=== PATIENT | female | born 1950 | race Caucasian/White ===

== ENCOUNTER 2023-05-20 08:07 | Observation (INO) ==
--- NOTE | 2023-04-29 12:18 | PAT Medication Instructions ---
Medication Instructions Date of Service April 29, 2023 Home Medications cholecalciferol (vitamin D3) 50 mcg (2,000 unit) tablet (Vitamin D3) 50 mcg PO QAM cyanocobalamin (vitamin B-12) 500 mcg tablet (Vitamin B-12) 500 mcg PO QAM fenofibrate nanocrystallized 145 mg tablet 145 mg PO QAM geriatric multivitamin-min 1 tab PO QAM glimepiride 2 mg tablet 2 mg PO QAM insulin aspar prt-insulin aspart 100 unit/mL (70-30) subcutaneous soln (Novolog Mix 70-30 U-100 Insuln) 32 - 48 unit subcut UD potassium chloride 20 mEq tablet,extended release 20 meq PO QAM STOP taking 48 hours before surgery fenofibrate nanocrystallized 145 mg tablet 145 mg PO QAM DO NOT take the morning of surgery cholecalciferol (vitamin D3) 50 mcg (2,000 unit) tablet (Vitamin D3) 50 mcg PO QAM cyanocobalamin (vitamin B-12) 500 mcg tablet (Vitamin B-12) 500 mcg PO QAM geriatric multivitamin-min 1 tab PO QAM glimepiride 2 mg tablet 2 mg PO QAM insulin aspar prt-insulin aspart 100 unit/mL (70-30) subcutaneous soln (Novolog Mix 70-30 U-100 Insuln) 32 - 48 unit subcut UD (Documented addended at PAT appt- handwritten instructions to take usual Novolog 70/30 dose night prior and to check glucose DOS- if greater than 150- take 1/2 of Novolog 70/30 dos (24 units), if glucose less than 150- do NOT take Novolog 70/30 DOS) potassium chloride 20 mEq tablet,extended release 20 meq PO QAM Other Notes NOTHING TO EAT OR DRINK AFTER MIDNIGHT. If you have any questions please call us at [phone] or [phone] or [phone] or [phone]
--- NOTE | 2023-05-04 10:26 | Anesthesiology Consultation ---
Date of Service May 04, 2023 Assessment & Plan (1) Encounter for pre-operative examination: Chart Review Chart Review: Acceptable Risk for Surgery and Patient seen in Pre Admission Testing - Check BSG AM DOS Pt currently scheduled as 23 hours observation. If surgeon decides to change patient to Same Day Joint, patient would be acceptable risk for MAYE, pending patient is motivated, has good support and surgeon's office completes Same Day [facility] Program preop requirements. Per PAT appt on 05/04/23, no recent Covid exposures, Covid related symptoms, or recent Covid positive tests. Will leave to surgeon's discretion if preop Covid testing needed PCP Clearance Request 04/30/23= "Yes" patient is medically cleared for surgery Teaching & Discussion Pre-Anesthesia Teaching/Discussion Notes: Instructed NPO after midnight before surgery,except medications with 15 cc of water. Medication instructions provided according to the PAT guidelines. History Surgery Operation Date: 05/20/23 10:25 Proposed Procedures p Right Total Hip Arthroplasty - Rajan Gee MD Height/Weight Height: 5 ft 5 in Weight: 75.1 kg Allergies Allergy/AdvReac Type Severity Reaction Status Date / Time ciprofloxacin [From Cipro] AdvReac headache Verified 04/28/23 16:07 Medications Home Medications Medication Instructions Recorded Confirmed Last Taken cholecalciferol (vitamin D3) 50 50 mcg PO QAM 04/28/23 04/28/23 Unknown mcg (2,000 unit) tablet (Vitamin D3) cyanocobalamin (vitamin B-12) 500 500 mcg PO QAM 04/28/23 04/28/23 Unknown mcg tablet (Vitamin B-12) fenofibrate nanocrystallized 145 145 mg PO QAM 04/28/23 04/28/23 Unknown mg tablet geriatric multivitamin-min 1 tab PO QAM 04/28/23 04/28/23 Unknown glimepiride 2 mg tablet 2 mg PO QAM 04/28/23 04/28/23 Unknown insulin aspar prt-insulin aspart 32 - 48 unit subcut UD 04/28/23 04/28/23 Unknown 100 unit/mL (70-30) subcutaneous soln (Novolog Mix 70-30 U-100 Insuln) potassium chloride 20 mEq 20 meq PO QAM 04/28/23 04/28/23 Unknown tablet,extended release Past Medical History Medical History (Updated 05/04/23 @ 14:53 by Allie Jernigan PA-C) DM type 2 (diabetes mellitus, type 2) Glucose controlled - recent A1C 7.3 on 04/16/23- recently started on Glimepiride; has been taking Novolog 70/30 History of migraine In Hyperlipidemia Osteoarthritis PONV (postoperative nausea and vomiting) w/ colonoscopies x 2 occurrences Spinal stenosis Exercise / Class Metabolic Activity II 4-5 Yardwork/Stairs/Walk up hill (one flight of stairs- no chest pain or SOB ) Past Surgical History Surgical History History of appendectomy History of bladder surgery History of breast biopsy History of carpal tunnel surgery History of partial hysterectomy History of tonsillectomy Hx of colonoscopy Past Anesthesia History No Hx of Anesthesia Complications (with exception of PONV ) and No Family Hx of Anesthesia Complications History of PONV History of PONV (with colonoscopies x 2 ) and Hx of Motion Sickness Social History Smoking Status: Never smoker Do You Dip or Chew Tobacco: No Hx Alcohol Use: No Hx Substance Use: No substance use type: does not use Review of Systems Patient denies chest pain, shortness of breath, dyspnea on exertion, reflux, cough, wheezing, palpitations. No hx of seizures, stroke, DC, apnea/snoring. No hx of blood clots or blood transfusions Physical Exam Vital Signs VITALS BP 138/78 P 63 TEMP 98.3 SP02 97% RESP 16 Constitutional no acute distress ENMT Mouth: + small oral opening; no TMJ clicking Thyromental Distance: < 3.5 Finger Breadths (3.0) Mallampati Class: III Possible crown to molar Neck + limited neck extension (mild ) Respiratory normal respiratory effort; no respiratory distress Auscultation: lungs clear to auscultation bilaterally; no wheezes Cardiovascular Rate/Rhythm: regular rate and regular rhythm Heart Sounds: no murmur Vessels: no carotid bruit Musculoskeletal Spine: + pain with cervical ROM (mild stiffness ) Extremities: extremities normal to inspection Psychiatric Orientation: alert Lab Results Anesthesia Preop Results Results Anesthesia Widget: PT 11.0 Seconds (9.0-12.0) 05/04/23 PTT 27.1 Seconds (21.0-31.0) 05/04/23 INR 1.0 (0.9-1.1) 05/04/23 Urine Color Yellow 05/04/23 Urine Appearance Cloudy (Clear) A 05/04/23 Urine pH 5.5 (4.5-7.5) 05/04/23 Urine Specific [place] 1.017 (1.000-1.030) 05/04/23 Urine Protein Negative (Negative) 05/04/23 Urine Glucose (UA) Trace (Negative) H 05/04/23 Urine Ketones Negative (Negative) 05/04/23 Urine Blood Trace (Negative) H 05/04/23 Urine Nitrite Positive (Negative) A 05/04/23 Urine Bilirubin Negative (Negative) 05/04/23 Urine Urobilinogen Negative (Negative) 05/04/23 Urine Leukocyte Esterase 1+ (Negative) H 05/04/23 Urine WBC (Auto) >30 /hpf (0-5) H 05/04/23 Urine RBC (Auto) 0-4 /hpf (0-4) 05/04/23 Urine Hyaline Casts (Auto) 0 /lpf (0-5) 05/04/23 Urine Epithelial Cells (Auto) 10-20 /lpf (0-5) H 05/04/23 Urine Bacteria (Auto) 4+ (Negative) H 05/04/23 Blood Type A Positive 05/04/23 Antibody Screen NEGATIVE 05/04/23 Testing Laboratory Results Surgeon's office informed of abnormal UA- culture pending- will leave to surgeon's discretion how to proceed 04/16/23= WBC: 6.45 H/H: 13.2/41.9 PLATELETS: 294 SODIUM: 140 POTASSIUM: 4.0 CHLORIDE: 107 CO2: 27.2 BUN: 13.9 CREATININE: 0.75 GLUCOSE: 115 HGB A1C: 7.3 Electrocardiogram Date: 05/04/23 Findings: + NSR @ (71bpm ) Normal EKG per cardio Chest X-Ray Date: 05/04/23 Findings: + NAD
[~2023-05-20 08:07] MED LIST: ACETAMINOPHEN 500 MG TAB PO SCH; BUPIVACAINE 0.5 % 5 MG/1 ML PF 10ML VIAL ONE; CeleBREX 200 MG CAP PO SCH; FAMOTIDINE 20 MG TAB PO SCH; LR 500ML BOLUS, THEN 15ML/HR IV SCH; LR 60ML/HR IV SCH; MIDAZOLAM HCL 1 MG/ML 2ML VIAL ONE; PROPOFOL IV EMULSION 10 MG/ML 20 ML VIAL IV ONE; Scopolamine 1 MG TDSY TD SCH; TRANEXAMIC ACID 1,000 MG **IV Intra-op IV SCH; TRANEXAMIC ACID 1,000 MG **IV Pre-op IV SCH; ceFAZolin 2000MG 2,000 MG/15 ML SYR IV SCH; traMADol HCL 50 MG TABLET PO SCH
[2023-05-20] MEDS ORDERED: MIDAZOLAM HCL 1 MG/ML 2ML VIAL ONE (08:36)
--- NOTE | 2023-05-20 10:02 | History & Physical Bridge Note ---
Date of Service May 20, 2023 History & Physical Bridge Note I have examined the patient, reviewed the History & Physical and in the interval since the performance of the History & Physical I have noted the following changes of clinical significance: no changes noted
[2023-05-20] MEDS ORDERED: ORTHO JOINT ANESTHETIC ONE (10:06)
[2023-05-20] MEDS ORDERED: ATROPINE SULFATE 0.1 MG/ML 10ML SYR IV PRN (10:31)
[2023-05-20] MEDS ORDERED: ePHEDrine sulfate 50 MG/ML AMP IV PRN (10:31)
[2023-05-20] MEDS ORDERED: ONDANSETRON INJ 2 MG/ML 2 ML VIAL IV PRN ×2 (10:31→12:03)
[2023-05-20] MEDS ORDERED: fentaNYL citrate PF 100 MCG/2 ML VIAL IV PRN (10:31)
[2023-05-20] MEDS ORDERED: ePHEDrine sulfate 50 MG/ML AMP ONE (11:06)
[2023-05-20] MEDS: ROPIVACAINE 0.5% HCL/PF 150 MG, BUPIVACAINE 0.75% MPF 20 ML, EPINEPHrine 0.15 MG, Ketor... INFIL SCH (11:31)
--- NOTE | 2023-05-20 12:00 | Operative Report ---
Post Operative Report Pre & Post Diagnosis Operation Date: 05/20/23 10:15 Preoperative diagnosis: Right hip osteoarthritis. Postoperative diagnosis: Right hip osteoarthritis. I identified the patient and participated in the time-out.: Yes Procedure Operation Date: 05/20/23 10:15 Right total hip arthroplasty Surgeon Rajan Gee MD Senior Qa Engineer ERI Levi PA-C. Sky Landon MD Estimated Blood Loss 100 Findings Consistent with Post-Op Diagnosis Specimens right femoral head Anesthesia Type Spinal MAC Complications none Disposition Disposition: Recovery Room Indications 73-year-old female with right hip osteoarthritis refractory to conservative management. X-rays demonstrate [id number] disease. I had a long discussion with her about the risks and benefits of surgery, alternatives to surgery, and expected outcomes. After reviewing all these she elected to proceed with surgery. All questions were answered. Informed consent was signed. Description of Procedure Patient was identified in the preoperative holding area where the surgical site, right hip, was marked. A spinal anesthetic was placed, then the patient was brought back to the main operating room, placed in the operating table and moved into the lateral decubitus position. Axillary roll was placed. All bony prominences were padded. Perioperative antibiotics and tranexamic acid 1 gram IV were administered. Operative extremity was prepped and draped in the normal sterile fashion. Prior to incision a multidisciplinary timeout was called. All in the room were in agreement. We began by making an incision for a posterior approach to the hip. We dissected down through subcutaneous tissues to the level of the fascia. The fascia was incised in line with the incision. Charnley bow was placed. Fatty tissue was reflected posteriorly off the back of the greater trochanter to expose the piriformis and short external rotators of the hip. The piriformis and short external rotators were dissected off the posterior aspect of the hip. A box cut was made in the capsule. Inferior hip capsule was released off the femur. The femoral head was dislocated. The femoral neck cut was made at our preoperative template. The acetabulum was then exposed. The labrum was sharply excised. Contents of the cotyloid fossa were removed with electrocautery. We then began reaming at a size 8 mm less than our preoperative template. We reamed up by [address] the way up to a size 50 mm cup. This gave us good bleeding cancellus bone circumferentially. The acetabulum was then irrigated out and dried. The real Sweet Gription cup was then impacted down into position with 45 degrees of lateral opening and 25 degrees of anteversion. A single cancellous bone screw was placed up into the ilium. Excellent fixation was obtained. A trial liner for a 32 mm femoral head was then placed. Next we turned our attention to the femur. The lateral neck was removed with a box osteotome. Intramedullary guide was used to establish the femoral canal. We then broached all the way up to a size 5. We began trialing with a standard offset neck and a +5 head. Hip was reduced. Leg lengths were symmetric. The hip was stable in extension and external rotation, and stable in the sleeper position. At 90 degrees of hip flexion the hip could be internally rotated 50 degrees before levering out of the cup. I was very happy with the stability exam. Therefore the hip was dislocated and the femoral trial was removed. The acetabulum was re-exposed, and the trial liner was removed. An Altrx polyethylene liner for a 32 mm femoral head was then impacted into the shell. The locking mechanism was checked to ensure that it had engaged which it had. The femur was re-exposed. The femoral canal was irrigated and dried. The real size 5 standard offset stem was opened up. This was impacted down into position. It sat at the same level as the femoral trial. Therefore the 32 mm ceramic femoral head with +5 mm offset was opened up and gently impacted down onto the trunnion. The hip was atraumatically reduced. Another 1 gram of IV tranexamic acid was started prior to closure. The wound was irrigated out with sterile Betadine solution. The periarticular injection cocktail was then placed. The short external rotators, piriformis, and posterior capsule were repaired through drill holes in the greater trochanter using #2 Vicryl. The fascia was run with a looped #1 PDS. The subcutaneous layer was closed with #1 PDS. The dermal layer was closed with 2-0 Vicryl. Zip line was used for the skin followed by a Silverlon dressing. A compressive dressing was then placed. The patient was then rolled supine. Leg lengths were rechecked and were symmetric. An abduction pillow was placed. Sedation was lifted and the patient was transferred to the recovery room in stable condition. Summary of implants: Depuy Sweet Gription Acetabular Shell Sector Cup, 50 mm outer diameter Sweet Cancellous bone screw, 6.5 x 40 mm [place] hole eliminator Sweet Altrx Polyethylene Acetabular Liner, Neutral, with a 32 mm inner diameter DePuy Actis femoral stem with Por[place]oat, 12/14 taper, size 5 standard offset 32 mm ceramic femoral head with +5 offset Postoperative course: Patient will be admitted to the hospital from the recovery room. Patient will be weightbearing as tolerated with posterior hip precautions. Aspirin for DVT prophylaxis I attest to the content of the Intraoperative Record and any orders documented therein. Any exceptions are noted below.
[2023-05-20] MEDS ORDERED: diphenhydrAMINE 50 MG/ML VIAL IV PRN (12:03)
[2023-05-20] MEDS ORDERED: NALOXONE HCL 0.4 MG/1 ML VIAL/CARP IV PRN (12:03)
[2023-05-20] MEDS ORDERED: MAGNESIUM HYDROXIDE SUSP 30 ML UDC PO PRN (12:03)
[2023-05-20] MEDS ORDERED: METOCLOPRAMIDE HCL INJ 5 MG/ML 2 ML VIAL IV PRN (12:03)
[2023-05-20] MEDS ORDERED: ALUMINUM/MAGNESIUM SUSP 30 ML UDC PO PRN (12:03)
[2023-05-20] MEDS ORDERED: bisacodyL 10 MG SUPP PR PRN (12:03)
[2023-05-20] MEDS ORDERED: PHARMACY GLYCEMIC MGMT CONSULT PRN (12:03)
[2023-05-20] MEDS ORDERED: HYDROmorphone INJ 0.5 MG/0.5 ML SYR IV PRN (12:03)
--- NOTE | 2023-05-20 12:03 | Operative Report ---
Post Operative Report Pre & Post Diagnosis Operation Date: 05/20/23 10:15 Pre-Op Diagnosis: Right Hip Osteoarthritis Post-Op Diagnosis: Right Hip Osteoarthritis I identified the patient and participated in the time-out.: Yes Procedure Operation Date: 05/20/23 10:15 Actual Procedures p Right Total Hip Arthroplasty(Right) - Rajan Gee MD Surgeon Dr. Rajan Gee Apn EIR Levi PA-C. Sky Landon MD Estimated Blood Loss 100 Findings Consistent with Post-Op Diagnosis Specimens femoral head Description of Procedure I was present during the entire procedure assisting with positioning, prepping, draping, wound retraction, wound closure, dressing and abduction pillow placement. Fellow also present. I served as an extra set of hands during the case. Please see Dr. Gee procedure note for specifics of the case. I attest to the content of the Intraoperative Record and any orders documented therein. Any exceptions are noted below.
--- NOTE | 2023-05-20 12:06 | Operative Report ---
Post Operative Report Pre & Post Diagnosis Operation Date: 05/20/23 10:15 Pre-Op Diagnosis: Right Hip Osteoarthritis Post-Op Diagnosis: Right Hip Osteoarthritis I identified the patient and participated in the time-out.: Yes Procedure Operation Date: 05/20/23 10:15 Actual Procedures p Right Total Hip Arthroplasty(Right) - Rajan Gee MD Surgeon Rajan Gee MD Asphalt Layer ERI Levi PA-C. Sky Landon MD Estimated Blood Loss 100 Findings Consistent with Post-Op Diagnosis See detailed operative note Specimens None Description of Procedure See detailed operative note. I attest to the content of the Intraoperative Record and any orders documented therein. Any exceptions are noted below.
[2023-05-20] MEDS ORDERED: INSULIN ASPART SQ SCH (12:15)
[2023-05-20] MEDS ORDERED: INSULIN ASPART PROTAMINE SQ SCH (12:15)
--- NOTE | 2023-05-20 12:41 | XRay Report ---
XR pelvis 1-2V routine CLINICAL HISTORY: In PACU - Post Surgical TECHNIQUE: A single frontal view of the pelvis was obtained. Comparison: Comparison is made to pelvis radiograph 05/04/2023 FINDINGS: Patient is status post total hip arthroplasty with expected postsurgical changes including soft tissu e swelling, and subcutaneous emphysema. No periarticular lucency or hardware fracture is seen. Degene rative changes are seen in the left hip joint. IMPRESSION: Expected postoperative appearance status post placement of total hip arthroplasty. ACT 112: Negative or not required by law. Electronically signed by: Osmel Abraham M.D. 05/20/2023 12:40 PM
[2023-05-20] MEDS: SODIUM CHLORIDE 0.9% 1,000 ML IV SCH ×2 (13:40→22:47)
--- NOTE | 2023-05-20 13:50 | Anesthesiology Progress Note ---
Date of Service May 20, 2023 Anesthesia Post Procedure Vital Signs Vital Signs: Temp Pulse Pulse Resp BP Pulse Ox O2 Del Method 05/20/23 13:30 65 16 125/55 L 99 Room Air 05/20/23 13:20 36.3 C L 74 16 123/54 L 96 Room Air 05/20/23 13:10 60 14 125/56 L 98 Room Air 05/20/23 13:00 69 16 125/71 100 Room Air 05/20/23 12:50 65 14 127/52 L 99 Room Air 05/20/23 12:40 67 14 131/53 L 100 Room Air 05/20/23 12:30 73 14 133/55 L 98 Room Air 05/20/23 12:20 73 14 130/57 L 100 Room Air 05/20/23 12:10 68 16 137/60 99 Room Air 05/20/23 12:02 37.0 C 75 16 139/55 L 99 Room Air 05/20/23 09:06 36.7 C 73 18 144/63 H 99 Room Air Pain Intensity Right Hip: Pain Intensity: 1 Transfer of Care Handoff Completed per policy Notes Mental Status: alert / awake / arousable and participated in evaluation Nausea / Vomiting: adequately controlled Pain: adequately controlled Airway Patency, RR, SpO2: stable & adequate BP & HR: stable & adequate Hydration State: stable & adequate Neuraxial Anesthesia: was administered and sensory block is resolving Anesthetic Complications: no major complications apparent and Pt Satisfied with anesthetic care
--- NOTE | 2023-05-20 14:20 | Pharmacy Report ---
Pharmacy Glycemic Short Note 2 - Date of Service May 20, 2023 - Glycemic Short BSG Results (Last 24 hours): 05/20/23 05/20/23 08:31 12:04 POC Glucose 113 H 116 H OUTPATIENT ANTIDIABETIC REGIMEN: * Novolin mix 70/30- 48 units with breakfast, 32 units with dinner * Glimeperide 2mg QAM ASSESSMENT: * Kathleen is a 73 YOF admitted post total hip arthroplasty. Pharmacy has been consulted for glycemic management while inpatient. * Fasting BSG this AM is within goal range, will start NPH (Novolin Mix 70/30 is non-formulary) with dinner based off of total daily insulin requirements outpatient. Hold basal insulin if not eating dinner. * Will start conservatively with Novolog parameters at a weight based stress of 2 PLAN FOR INPATIENT GLYCEMIC CONTROL: * Hold outpatient oral diabetes medications * Basal insulin * Insulin NPH 15 units SQ with dinner (Reassess basal insulin in AM) * Bolus insulin * NovoLog per scale ACHS or Q6hrs while NPO * Goal Range: Low 110 mg/dL - High 140 mg/dL * Correction Factor: 30 mg/dL/unit * Nutritional / Prandial insulin per carb ratio of 1 unit per 11 grams CHO consumed
[2023-05-20] MEDS: ACETAMINOPHEN 500 MG TAB PO SCH ×2 (14:38→21:12)
[2023-05-20] MEDS: KETOROLAC TROMETHAMINE 15 MG/ML VIAL IV SCH ×2 (14:38→21:12)
[2023-05-20] MEDS: INSULIN ASPART PER UNIT CHARGE SC SCH ×3 (14:38→21:54)
[2023-05-20] MEDS ORDERED: NovoLIN-N (NPH) PER UNIT CHARGE SQ SCH (17:00)
[2023-05-20] MEDS: Scopolamine CHECK PATCH PLACEMENT SCH (17:11)
[2023-05-20] MEDS ORDERED: TRANEXAMIC ACID / 0.7% NACL 1,000 MG/100 ML BAG IV SCH (18:15)
[2023-05-20] MEDS: ceFAZolin 2000MG 2,000 MG/15 ML SYR IV SCH (18:20)
[2023-05-20] MEDS ORDERED: SENNA 8.6 MG TAB PO SCH (21:00)
[2023-05-20] MEDS ORDERED: CeleBREX 200 MG CAP PO SCH (21:00)
[2023-05-20] MEDS: DOCUSATE SODIUM 100 MG CAP PO SCH (21:01)
[2023-05-20] MEDS: oxyCODONE HCL IR 5 MG TAB (IMMEDIATE RELEASE) PO PRN (23:31)
[2023-05-21] MEDS: Scopolamine CHECK PATCH PLACEMENT SCH ×2 (00:19→08:29)
[2023-05-21] MEDS: ceFAZolin 2000MG 2,000 MG/15 ML SYR IV SCH (02:23)
[2023-05-21] MEDS: KETOROLAC TROMETHAMINE 15 MG/ML VIAL IV SCH ×2 (02:23→08:26)
[2023-05-21] MEDS: ACETAMINOPHEN 500 MG TAB PO SCH (05:55)
[2023-05-21] MEDS: ROPIVACAINE 0.5% HCL/PF 150 MG, BUPIVACAINE 0.75% MPF 20 ML, EPINEPHrine 0.15 MG, Ketor... INFIL SCH (06:55)
[2023-05-21] MEDS ORDERED: NovoLIN-N (NPH) PER UNIT CHARGE SQ SCH (08:00)
[2023-05-21 08:06] LABS: Basophils # (auto) 0.01 K/uL (0.00-0.20); Basophils % (auto) 0.1 %; Eosinophils % (auto) 1.4 %; Hematocrit (blood only) 31.3 % (37.0-47.0); Hemoglobin 10.3 g/dl (12.0-16.0); Immature Granulocytes # (auto) 0.08 K/uL (0.01-0.20); Immature Granulocytes % (auto) 1.1 %; Lymphocytes # (auto) 1.47 K/uL (1.20-3.40); Lymphocytes % (auto) 21.1 %; Mean Corpuscular Hemoglobin 28.9 pg (25.0-34.0); Mean Corpuscular Hgb Conc 32.9 g/dL (32.0-36.0); Mean Corpuscular Volume 87.9 fL (80.0-100.0); Mean Platelet Volume 9.3 fL (9.4-12.4); Monocytes # (auto) 0.72 K/uL (0.11-0.59); Monocytes % (auto) 10.3 %; Neutrophils # (auto) 4.58 K/uL (1.40-6.50); Platelet Count 185 K/uL (130-400); RDW Coefficient of Variation 12.9 % (11.5-14.5); Red Blood Count 3.56 M/uL (4.20-5.40); White Blood Count 6.96 K/ul (4.8-10.8)
[2023-05-21 08:23] LABS: BUN Creatinine Ratio 21.7 (10-20); Calcium 8.7 mg/dl (8.6-10.3); Creatinine Clr Calc Pharmacy 73.9 ml/min; Est GFR (African American) 100.8 ml/min; Potassium 4.2 mmol/L (3.5-5.1)
[2023-05-21] MEDS: DOCUSATE SODIUM 100 MG CAP PO SCH (08:26)
[2023-05-21] MEDS: INSULIN ASPART PER UNIT CHARGE SC SCH ×2 (08:37→12:29)
[2023-05-21] MEDS ORDERED: MULTIVITAMIN TAB PO SCH (09:00)
[2023-05-21] MEDS ORDERED: FENOFIBRATE NANOCRYSTALLIZED 145 MG TABLET PO SCH (09:00)
[2023-05-21] MEDS ORDERED: POTASSIUM CHLORIDE CRTAB 20 MEQ TABCR PO SCH (09:00)
[2023-05-21] MEDS ORDERED: CYANOCOBALAMIN (B-12) 500 MCG TABLET PO SCH (09:00)
[2023-05-21] MEDS ORDERED: GLIMEPIRIDE 2 MG TAB PO SCH (09:00)
[2023-05-21] MEDS ORDERED: [UNRECOGNIZED DRUG - OTHER] PO SCH (09:00)
[2023-05-21] MEDS ORDERED: ASPIRIN 81 MG ECTAB PO SCH (09:00)
[2023-05-21] MEDS ORDERED: CHOLECALCIFEROL 1,000 UNITS 25 MCG TAB PO SCH (09:00)
[2023-05-21] MEDS ORDERED: CeleBREX 200 MG CAP PO SCH ×2 (09:00→21:00)
--- NOTE | 2023-05-21 12:02 | Orthopedic Progress Note ---
Date of Service May 21, 2023 Assessment & Plan (1) History of total right hip arthroplasty: Plan: The patient was educated regarding today's findings. Conservative care measures were discussed. Her dressing has already been changed to a Silverlon dressing. She will keep it in place until seen in the office. She may shower, but should keep her dry. Continue ambulation using her walker. Weight-bear as tolerated. Sleep with her wedge pillow between her legs. Continue her total hip precautions. Prescriptions for oxycodone 5 mg, Celebrex, aspirin, and Tylenol were sent to her pharmacy. She will take aspirin 81 mg twice daily for DVT prophylaxis. Written discharge instructions were provided. Follow-up in the office in 2 weeks as scheduled. Call with any other concerns. Admission and Anticipated Discharge Date Admission Date: May 20, 2023 Subjective This 73-year-old female seen today in her room. She has finished her physical and Occupational Therapy. She states she is feeling pretty well. She is ready to go home. She denies any chest pain, shortness of breath, nausea, vomiting, or abdominal pain. He did have to use 1 oxycodone last evening. Other than that she has been using Tylenol. No other complaints. Physical Exam Physical Exam: General: Well-developed, well-nourished, elderly female, in no acute distress. Sitting in a chair. Alert and oriented. Conversive. Skin: Warm and dry with good turgor. No rashes. No ecchymosis or edema. She has a Silverlon dressing in place on her right hip. There is no active bleeding. Musculoskeletal: The patient has intact motor function of her right leg. She is able to rise from a chair on her own. She is able to stand with her walker and take numerous steps. She has supple motion of her hip. Intact motor function of her knee and ankle. Neurologic: Gross sensation is intact across the right leg by soft touch. Results & Data Vital Signs (Past 12 Hours) Vital Signs Temp Pulse Resp BP Pulse Ox O2 Del Method 05/21/23 07:48 36.5 C 61 16 131/70 100 Room Air 05/21/23 04:00 36.5 C 63 16 114/70 99 Room Air Laboratory Results CBC obtained today shows a white count of 6.96. H&H of 10.3 and 31.3. Platelet count of moderate 85,000. Sodium 139, potassium 4.2, chloride 111, CO2 24, BUN of 15, creatinine 0.69. Glucose 140. Calcium 8.7.
[2023-05-21] MEDS: oxyCODONE HCL IR 5 MG TAB (IMMEDIATE RELEASE) PO PRN (12:29)
[2023-05-22] MEDS ORDERED: NovoLIN-N (NPH) PER UNIT CHARGE SQ SCH (08:00)
--- NOTE | 2023-05-25 08:27 | Discharge Summary ---
Date of Service May 25, 2023 Admission HPI Per Admitting Provider Kathleen is a 73-year-old female here today for preoperative history and physical examination for the above-noted procedure. She denies any major changes with her right hip. She says that it is still causing her severe pain. She was work with Dr. Tavera over the last few months receiving steroid injections into the back and saw his physician retirement assistant who ordered hip x-ray which showed some severe right and moderate left hip arthritis with a small subchondral fracture and slight flattening of the left femoral head. history of having a right LESI L5-S1 on 01/19/2023 he was going to acute care physical therapist about vishal bond 3-week and was previously doing massage therapy on a weekly basis. She notices hip pain most of the day notices hip pain on the lateral aspect as well as in the groin area as well does not take any pain meds at this time. Does have numbness and tingling down the bilateral extremities at times even at night. Right gives out she feels like [1] She reports high cholesterol that is well controlled with a statin. She denies any history of heart attack, stroke or blood clots. She does have diabetes and is on insulin treatment for that. She had a recent A1c done on 04/16/2023 that was 7.3. She regularly checks her sugars and they have been in the 120s. This morning it was 113. Admission Exam Per Admitting Provider Physical Exam Vitals & Measurements T: 36.2 C HR: 75 (Monitored) RR: 18 BP: 130/62 SpO2: 99% HT: 167 cm WT: 75 kg WT: 75.000 kg (Dosing) BMI: 26.89 General: Pt is well nourished, seated on the exam table AA&O, in NAD, calm and cooperative during exam HENT: Nontraumatic, no gross deformity, hearing and vision grossly in-tact, PERRL Heart: +S1, +S2, RRR, no murmurs appreciated Lungs: CTABL, no wheezing appreciated Focusing on right lower extremity: No skin abnormalities. Patient is walking with a rollator Hip ROM: IR and ER ROM wnl Flexion 90 B/L Internal Rotation -5 on right -5 on left External Rotation 30 B/L Strength: 5/5 with plantarflexion/dorsiflexion, foot inversion/eversion, knee flexion/extension, and hip flexion/extension and hip abduction/adduction Sensation: Intact over L2, L3, L4, L5, and S1 dermatomes Special test: negative seated and supine straight leg raise, negative MATEUSZ [2] Principal Diagnosis Right Hip Osteoarthritis Discharge Exam General: Well-developed, well-nourished, elderly female, in no acute distress. Sitting in a chair. Alert and oriented. Conversive. Skin: Warm and dry with good turgor. No rashes. No ecchymosis or edema. She has a Silverlon dressing in place on her right hip. There is no active bleedin g. Musculoskeletal: The patient has intact motor function of her right leg. She is able to rise from a chair on her own. She is able to stand with her walker and take numerous steps. She has supple motion of her hip. Intact motor function of her knee and ankle. Neurologic: Gross sensation is intact across the right leg by soft touch. Discharge Data Allergies Allergy/AdvReac Type Severity Reaction Status Date / Time ciprofloxacin [From Cipro] AdvReac headache Verified 05/20/23 09:00 Procedures Performed Operation Date: 05/20/23 10:15 Actual Procedures p Right Total Hip Arthroplasty(Right) - Rajan Gee MD Hospital Course (1) History of total right hip arthroplasty: Patient had an uneventful overnight stay following Right total hip arthroplasty. She is pleased with the results of her surgery. Plan is to discharge home today with in-home PT for the first 2 weeks following surgery. The patient was educated regarding today's findings. Conservative care measures were discussed. Her dressing has already been changed to a Silverlon dressing. She will keep it in place until seen in the office. She may shower, but should keep her dry. Continue ambulation using her walker. Weight-bear as tolerated. Sleep with her wedge pillow between her legs. Continue her total hip precautions. Prescriptions for oxycodone 5 mg, Celebrex, aspirin, and Tylenol were sent to her pharmacy. She will take aspirin 81 mg twice daily for DVT prophylaxis. Written discharge instructions were provided. Follow-up in the office in 2 weeks as scheduled. Call with any other concerns. Total Time Total Time Spent Total Time Spent (In Minutes): 20 mins Discharge Plan Discharge Items Patient Disposition: Home - Home Health Services Reason For Visit: Pain in Right Hip Discharge Diagnosis: Right hip osteoarthritis Condition on Discharge: Good Activity: As commented below Lifting: Wait until after follow-up appointment Bathing: Keep incision dry Bathing Comment: may shower tomorrow Sexual Activity: Wait until after follow-up appointment Exercise/Sports: Wait until after follow-up appointment Driving/Machine Use: No driving until cleared by tire specialist Weightbearing: Right weightbearing Weightbearing Comment: as tolerated with walker assistance Non-emergency contact: Surgeon Call non-emergency contact if: you have any medication questions, your pain is not controlled, your temperature is above 101.5, your wound has increased drainage and your wound pain has increased Follow-up/Referrals: Robert Levi PA-C [Physician Feller Operator] - Lux Beckham MD [Primary Care Provider] - Diet: Carb Count or DM1 Addtl Attending Provider Instructions: Post-operative Instructions Dear Patient and Family/Friends, Before you are discharged from the hospital, it is important to know what to expect when you get home after surgery. To that end, we have created this sheet of discharge instructions which covers many commonly asked questions. Make sure you go through this sheet in its entirety with your nurse before you are discharged. Please note that we will go over the specifics of your surgery and recovery when you return for your first post-operative visit. Sincerely, Dr. Gee Medications 1. Oxycodone 5 mg tablet: Take 1-2 tabs every 4-6 hours as needed for postoperative pain. A prescription for this medication will be sent to your pharmacy. 2. Celebrex 200 mg tablet: Take 1 tab twice daily for 30 days postoperatively for pain and inflammation relief. This will be sent to your pharmacy with 1 refill. 3. Aspirin 81 mg tablet: Take 1 tab twice daily for 30 days postoperatively for blood clot prevention. Please purchase this medication. 4. Extra strength Tylenol 500 mg tablet: Take 2 tabs every 6-8 hours as needed for additional pain relief. Please purchase. Pain Expect to be in a fair amount of pain after surgery. Remember, our goal is not to eliminate your pain, but to make it tolerable. It is a good idea to stay ahead of your pain by taking the medications you were prescribed once you get home. Typically, the pain starts improving 3-7 days after surgery. You should start weaning off the narcotic pain medication (oxycodone, hydrocodone, hydromorphone, morphine) as soon as your pain improves. Please call our office if your pain is not adequately controlled. Ice Ice your operative site at least 5 times a day for 15-30 minutes at a time. Make sure you have a thin cloth between the ice or cooling unit and your skin to prevent souza bite. This is especially important if you received a nerve block. Continue icing your operative site for the first 5-7 days after surgery, then as needed. Diet/Nausea/Vomiting Start by drinking clear liquids and eating crackers. If you can tolerate this, then you may resume your normal diet. If you feel nauseated or vomit, take Zofran/ondansetron (if prescribed). Please call our office if you have intractable nausea or vomiting, or, if after hours, you may go to the Emergency Room for help. Constipation Constipation is a common side effect of narcotic pain medication. If you have not had a bowel movement within 2 days after surgery, we recommend purchasing an over the counter laxative such as Milk of Magnesia, Dulcolax, or Miralax from a local pharmacy, and taking it as instructed. Call our clinic if any questions. Slings and Braces If you were placed in a sling or brace, it must be worn at all times, including sleep. You may remove your sling or brace for physical therapy, home exercises, and showering. The length of time you will be in your brace and range of motion restrictions depends on what surgery you had; these details will be reviewed at your first post-operative appointment. Nerve block The anesthesia team sometimes places a nerve block to help with post-operative pain control. This results in significant numbness and inability to move the extremity. The nerve block usually wears off in 8-12 hours, but sometimes can last up to 24 hours. Please call our office if you are still unable to move your extremity after 24 hours, unless you received a pain pump to take home. Nerve blocks typically wear off quickly, so start taking pain medication as soon as you start feeling soreness near your surgical site. Weight bearing and Range of Motion. Do not bear any weight through your operative extremity immediately after surgery. If you had upper extremity surgery, do not lift anything with that arm. If you are in a knee brace, keep it locked in place until your follow-up. We will discuss your weight bearing, range of motion, and lifting restrictions in detail at your first post-operative appointment. Continuous Passive Motion (CPM) Machine If you were prescribed a CPM machine, it will start after your first post- operative appointment, at which time we will give you instructions on the range of motion settings and duration of treatment Physical therapy You will be given a prescription for physical therapy or occupational therapy at your first post-operative appointment. Typically, patients start therapy within 1 week of surgery Wound care and showering We will inspect your wound at your first post-operative visit, and may do a dressing change at that time. Most patients will be in a water-proof dressing that is removed 14 days after surgery. It is normal to see some dried blood on the dressing. Do not remove your dressing, paper strips or sutures yourself unless you are given permission. Showering is allowed the day after surgery. Do not scrub or remove any dressings. The wound should not be submerged underwater (i.e. in a bathtub or pool) until 4 weeks after surgery ALEX stockings If you were given white stockings, these are to be worn at all times except to shower (on both legs) for the first 2 weeks after surgery. Driving You may not drive while taking narcotic pain medication or while in a cast, splint, sling or brace. You, the patient, need to make the final determination about when you are safe to drive, however, the earliest you may consider driving after surgery is below: Hand/Wrist/Elbow Surgery: 3 days Shoulder Surgery: 2 weeks Hip,/Knee/Ankle Surgery: 4 weeks Fracture repair: 6 weeks Return to Work Your return to work depends on what surgery was done and what type of work you do. Please bring any paperwork your employer needs completed to your first post-operative visit. Also, bring a description of your job duties, as this helps us to understand what risks you may face at work. Travel Avoid long distance travel (greater than 1 hour) in airplanes and cars for the first 6 weeks after surgery. If you must travel, you need to have a Doppler ultrasound done before you travel to rule out a blood clot in your legs. Follow-up You should have a follow-up appointment already scheduled 1-2 days after surgery. If not, please contact our office to make this appointment before you leave the hospital. When to call the office It is normal to have swelling and bruising in the limb that was operated on. This will improve with time. It is also normal to have fevers for the first 2 days after surgery. Reasons you should call your doctor include: Uncontrolled pain; Nausea, vomiting, or constipation that does not improve with medication; Fevers over 101.5, chills, sweats; Drainage or bleeding from the wound; Foul odor; Spreading areas of redness; Any other concerns Pending Studies at Discharge: No Stand-Alone Forms: [facility], Pain - Opioid Pain Management Medications and DC Order Prescriptions: New acetaminophen [Tylenol Extra Strength] 500 mg Tablet 1,000 mg PO Q6H 30 Days Qty: 240 0RF aspirin 81 mg Tablet,Delayed Release (Dr/Ec) 81 mg PO BID 30 Days Qty: 60 0RF celecoxib [Celebrex] 200 mg Capsule 200 mg PO BID 30 Days Qty: 60 1RF oxycodone 5 mg Tablet 5 - 10 mg PO Q4H MDD Ongoing Tx PRN (Reason: Post op pain control) Qty: 28 0RF Continued glimepiride 2 mg Tablet 2 mg PO QAM Rx Instructions: administer with breakfast cyanocobalamin (vitamin B-12) [Vitamin B-12] 500 mcg Tablet 500 mcg PO QAM insulin asp prt-insulin aspart [Novolog Mix 70-30 U-100 Insuln] 100 unit/mL (70-30) Solution 32 - 48 unit SUBCUT UD Rx Instructions: 32 units at 1730 geriatric multivitamin-min Tablet 1 tab PO QAM fenofibrate nanocrystallized 145 mg Tablet 145 mg PO QAM cholecalciferol (vitamin D3) [Vitamin D3] 50 mcg (2,000 unit) Tablet 50 mcg PO QAM potassium chloride 20 mEq Tablet Extended Release 20 meq PO QAM Krames/Other Patient Handouts: Hip Precautions Admission Data Admit Date/Time: 05/20/23 12:04 Attending Provider: Rajan Gee Admit Provider: Rajan Gee Primary Care Provider: Lux Beckham Other Interventions: Discharge Summary Assessment (RN) Last Done: 05/21/23 09:27
== END 2023-05-21 13:16 | disposition home health service (06) ==
LOC: 3E 08:07 → ASU 08:07
DX: Z79.899 Other long term (current) drug therapy; E11.9 Type 2 diabetes mellitus without complications; Z88.1 Allergy status to other antibiotic agents; Z79.4 Long term (current) use of insulin; Z79.84 Long term (current) use of oral hypoglycemic drugs; M16.0 Bilateral primary osteoarthritis of hip; M25.751 Osteophyte, right hip; M65.9 Synovitis and tenosynovitis, unspecified

== ENCOUNTER 2023-10-14 09:28 | Observation (INO) ==
--- NOTE | 2023-10-01 12:24 | History & Physical Report ---
Date of Service October 01, 2023 Assessment & Plan (1) Osteoarthritis of left hip: Plan: PRE-OP Diagnosis: Left hip osteoarthritis Planned Procedure: Left total hip arthroplasty Plan: Patient is scheduled to undergo this procedure at the [facility] with a 23-hour observation admission with Dr. Gee on October. Risks and complications of the procedure such as: Infection, bleeding, pain, scarring, nerve blood vessel damage, weakness, wound problems, stiffness, incomplete relief of symptoms, hardware failure, hardware loosening, wear, fracture, tendon or ligament injury, dislocation, leg length inequality, blood clots, Embolism, heart attack, stroke and were explained to the patient at her visit today. Informed consent to perform the procedure was obtained. Patient also understands risks of proceeding with surgical intervention during the COVID-19 pandemic. Currently she is asymptomatic and has not been in contact with anyone positive for the virus recently. Patient does not need to meet with anesthesia due to her recent right total hip arthroplasty. Her CBC with differential, complete metabolic panel, EKG and hemoglobin A1c are all up-to-date. We will need to obtain an updated PT/INR, urinalysis, urine culture and sensitivity as well as a nasal culture for MRSA. Patient will also need preoperative medical clearance from their primary care provider Dr. White. She saw him on September 21 and was cleared for surgical intervention. Patient states that she plans on doing in-home physical therapy for the first 1 to 2 weeks postoperatively. Patient states that she will most likely elect to do outpatient physical therapy at [facility] in [place] which is closer to her home. Patient has a walker, raised toilet seat, shower chair and a hip kit from her previous hip surgery. During today's visit we reviewed the total hip packet as well as precautions. We discussed discharge planning from the hospital. I advised the patient that upon discharge from hospital we will prescribe a narcotic pain medication and anti- inflammatory. Patient will also be on an 81 mg aspirin twice daily for blood clot prevention. Patient will be scheduled for 2-week postoperative follow-up with myself on November 03, 2023. At that visit we will Provide the patient with an order for outpatient physical therapy and rehab protocol. This chart was completed utilizing [employer] voice recognition software. Grammatical errors, random word insertions, pronoun errors, and in complete sentences are an occasional consequence of the system. Any questions or concerns about the content, text, or information contained within the body of this dictation should be addressed directly to the physician for clarification. History of Present Illness Chief Complaint: Chief Complaint: Left hip pain Primary Care Provider: Karolina White MD History of Present Illness (including history relevant to procedure): This 73-year-old female presents to the clinic today for preoperative history and physical. Patient has a longstanding history of bilateral hip pain. She had her right hip replaced by Dr. Gee on May 20 and has had great results. She noticed that her left hip began hurting her much more after having her right hip fixed. She is finished with physical therapy for her right hip and is electing to proceed with left total hip arthroplasty due to worsening symptoms that are affecting her gait. Review Of Systems: A 12 point review of systems is performed and is unremarkable except for those things stated in the HPI and past medical history. Past Medical History: Problems: Arthritis of left hip Avascular necrosis of hip Hip osteoarthritis Bilateral hip pain Left lumbar radiculopathy Diabetes Procedure History Procedure Procedure Date Comments Right hip replaced Partial hysterectomy Breast biopsy Allergies and Sensitivities: ciprofloxacin(Unknown) Current Home Meds: (Last Updated 10/01 10:34) cholecalciferol (Vitamin D3) cyanocobalamin (Vitamin B12) fenofibrate (fenofibrate 145 mg oral tablet) glimepiride (glimepiride 2 mg oral tablet) TAKE 1 TABLET BY MOUTH ONCE DAILY IN THE MORNING BEFORE BREAKFAST insulin aspart-insulin aspart protamine (NovoLOG Mix 70/30 FlexPen subcutaneous suspension) 48 units in the morning, 32 units in the evening levoFLOXacin (Levaquin 500 mg oral tablet) 500 mg PO q24h preop UTI multivitamin 1 tab PO Daily potassium chloride (Potassium Chloride (Tle-Hiqy-Jaa M20) 20 mEq oral tablet, extended release) 20 mEq TAKE 1 BY MOUTH ONCE DAILY unlisted medication 50 each, USE 1 STRIP TO CHECK GLUCOSE ONCE DAILY Responsible Provider: KAROLINA WHITE 11/30 12:30 unlisted medication (FREESTYLE LITE TIKI) unlisted medication (BD PEN NEEDLE/JOVANNY [id number] MIS) Initial Wt: 09/29 77.4 kg 170 lb Allergies Allergy/AdvReac Type Severity Reaction Status Date / Time ciprofloxacin [From Cipro] AdvReac headache Verified 05/20/23 09:00 Home Medications Medication Instructions Recorded Confirmed Type cholecalciferol (vitamin D3) 50 50 mcg PO QAM 04/28/23 05/20/23 History mcg (2,000 unit) tablet (Vitamin D3) cyanocobalamin (vitamin B-12) 500 500 mcg PO QAM 04/28/23 05/20/23 History mcg tablet (Vitamin B-12) fenofibrate nanocrystallized 145 145 mg PO QAM 04/28/23 05/20/23 History mg tablet geriatric multivitamin-min 1 tab PO QAM 04/28/23 05/20/23 History glimepiride 2 mg tablet 2 mg PO QAM 04/28/23 05/20/23 History insulin aspar prt-insulin aspart 32 - 48 unit subcut UD 04/28/23 05/20/23 History 100 unit/mL (70-30) subcutaneous soln (Novolog Mix 70-30 U-100 Insuln) potassium chloride 20 mEq 20 meq PO QAM 04/28/23 05/20/23 History tablet,extended release celecoxib 200 mg capsule (Celebrex) 200 mg PO BID Post op pain and 05/20/23 Rx inflammation relief 30 days #60 caps oxycodone 5 mg tablet 5 - 10 mg (1 - 2 x 5 mg) PO Q4H 05/20/23 Rx PRN Post op pain control #28 tabs Past Med/Surg History Medical History History of migraine In Encounter for pre-operative examination PONV (postoperative nausea and vomiting) w/ colonoscopies x 2 occurrences Osteoarthritis Spinal stenosis DM type 2 (diabetes mellitus, type 2) Glucose controlled - recent A1C 7.3 on 04/16/23- recently started on Glimepiride; has been taking Novolog 70/30 Hyperlipidemia Surgical History History of breast biopsy History of carpal tunnel surgery History of tonsillectomy History of appendectomy History of bladder surgery History of partial hysterectomy Hx of colonoscopy Social History Smoking Status: Never smoker Second Hand Exposure: Yes (hx); Do You Dip or Chew Tobacco: No; Hx Alcohol Use: No Hx Substance Use: No Preferred Language: Frisian Communication Ability: Effective Nuclear Medicine Chief Technologist Required: No Beliefs That Will Affect Care: None Current Living Situation: Spouse Feels Safe at Home: Yes Assistive Devices: Cane, Raised Toilet Seat, Walker and Other Review of Systems All systems reviewed & are unremarkable except as noted in Subjective Physical Exam Physical Exam: Physical Exam: (relevant to the procedure, including heart and lung evaluation) General: Alert and oriented x 3 with proper grooming and hygiene Eyes: Pupils are equal and reactive to light with accommodation. Extraocular movements are intact Throat: Posterior oropharynx clear with absence of edema, erythema or exudate. Dentition is appropriate Cardiac: Regular rate and rhythm with no murmurs or gallops appreciated Lungs: Clear to auscultation throughout with no wheezing, rales or rhonchi Abdomen: Mildly obese, nondistended, nontender with NABS Extremities: Left hip: Patient experiences tenderness to palpation over the inguinal crease. Flexion is limited to about 95 degrees, external rotation to 40 degrees and internal rotation to 5 degrees. Straight leg raise test and Stinchfield test causes referred pain to the groin area. Logroll test does not cause any pain. Patient is neurovascularly intact in the left lower extremity. Neuro: Cranial nerves II through XII are intact with no motor or sensory deficit Skin: Normal appearance with no open skin areas or discharge Results & Data Diagnostic Findings Studies (relevant to the procedure): Results reviewed x-rays done today personally interpreted by me include an AP pelvis, and false profile lateral of the right hip. Hardware is in good position with no evidence of complication. She does have severe left hip arthritis with joint space narrowing, subchondral sclerosis and cyst formation
--- NOTE | 2023-10-06 11:43 | Anesthesiology Consultation ---
Date of Service October 06, 2023 Assessment & Plan (1) Encounter for pre-operative examination: Chart Review Chart Review: Acceptable Risk for Surgery (pending updated PCP clearance if available ) and Patient NOT seen in Pre Admission Testing - Awaiting updated PCP clearance (done 09/21/23 per surgeon's office)- surgeon's office will fax updated PCP clearance once received - Check BSG AM DOS - Will check PTT DOS (not done preoperatively) Pt currently scheduled as 23 hours observation. If surgeon decides to change patient to [facility], (pending functional status has not significant pastor ged from PAT preop evaluation 04/2023) patient would be acceptable risk for MAYE, pending patient is motivated, has good support and surgeon's office completes [facility] preop requirements. -Infectious Disease screening: Per [facility] nursing assessment on 10/06/23. No known infectious disease contacts in past 10 days or current infectious disease symptoms. No recent travel outside the country. PCP Clearance Request 07/08/23= "Yes" patient is medically cleared for left MAYE. Right MAYE 05/20/23= Done under [facility] at L3-4 with 1 attempt. History Surgery Operation Date: 10/14/23 08:15 Proposed Procedures p Left Total Hip Arthroplasty - Rajan Gee MD Height/Weight Height: 5 ft 5 in Weight: 74.843 kg Allergies Allergy/AdvReac Type Severity Reaction Status Date / Time ciprofloxacin [From Cipro] AdvReac headache Verified 10/06/23 10:55 Medications Home Medications Medication Instructions Recorded Confirmed Last Taken cholecalciferol (vitamin D3) 50 50 mcg PO QAM 04/28/23 10/06/23 05/19/23 08:00 mcg (2,000 unit) tablet (Vitamin D3) cyanocobalamin (vitamin B-12) 500 1,000 mcg PO QAM 04/28/23 10/06/23 05/19/23 08:00 mcg tablet (Vitamin B-12) fenofibrate nanocrystallized 145 145 mg PO QAM 04/28/23 10/06/23 05/19/23 08:00 mg tablet geriatric multivitamin-min 1 tab PO QAM 04/28/23 10/06/23 05/19/23 08:00 glimepiride 2 mg tablet 2 mg PO QAM 04/28/23 10/06/23 05/19/23 08:00 potassium chloride 20 mEq 20 meq PO QAM 04/28/23 10/06/23 05/19/23 08:00 tablet,extended release insulin aspar prot-insulin aspart 32 unit subcut QPM 10/06/23 10/06/23 Unknown 100 unit/mL (70-30) subcutaneous pen (Novolog Mix 70-30FlexPen U-100) insulin aspar prot-insulin aspart 48 unit subcut QAM 10/06/23 10/06/23 Unknown 100 unit/mL (70-30) subcutaneous pen (Novolog Mix 70-30FlexPen U-100) Past Medical History Medical History DM type 2 (diabetes mellitus, type 2) IDDM History of migraine In Hyperlipidemia Osteoarthritis PONV (postoperative nausea and vomiting) w/ colonoscopies x 2 occurrences Spinal stenosis Past Family History Family History Other No family history of adverse response to anesthesia Past Surgical History Surgical History History of appendectomy History of bladder surgery History of breast biopsy History of carpal tunnel surgery History of partial hysterectomy History of tonsillectomy Hx of colonoscopy S/P total right hip arthroplasty 05/2023 [facility] Social History Smoking Status: Never smoker Do You Dip or Chew Tobacco: No Hx Alcohol Use: No Hx Substance Use: No substance use type: does not use Lab Results Anesthesia Preop Results Results Anesthesia Widget: WBC 8.38 K/ul (4.8-10.8) 09/29/23 Hgb 13.7 g/dl (12.0-16.0) 09/29/23 Hct 42.3 % (37.0-47.0) 09/29/23 Plt 310 K/uL (130-400) 09/29/23 PT 10.9 Seconds (9.0-12.0) 09/29/23 INR 1.0 (0.9-1.1) 09/29/23 Urine Color Yellow 09/29/23 Urine Appearance Cloudy (Clear) A 09/29/23 Urine pH 5.0 (4.5-7.5) 09/29/23 Urine Specific [place] 1.022 (1.000-1.030) 09/29/23 Urine Protein Negative (Negative) 09/29/23 Urine Glucose (UA) 2+ (Negative) H 09/29/23 Urine Ketones Negative (Negative) 09/29/23 Urine Blood 2+ (Negative) H 09/29/23 Urine Nitrite Positive (Negative) A 09/29/23 Urine Bilirubin Negative (Negative) 09/29/23 Urine Urobilinogen Negative (Negative) 09/29/23 Urine Leukocyte Esterase 1+ (Negative) H 09/29/23 Urine WBC (Auto) >30 /hpf (0-5) H 09/29/23 Urine RBC (Auto) 10-30 /hpf (0-4) H 09/29/23 Urine Hyaline Casts (Auto) 1-5 /lpf (0-5) 09/29/23 Urine Epithelial Cells (Auto) 10-20 /lpf (0-5) H 09/29/23 Urine Bacteria (Auto) 4+ (Negative) H 09/29/23 Testing Laboratory Results 09/29/23= URINE CULTURE: 3 types of organisms present, all high counts. Repeat collection recommended (surgeon's office informed; surgeon aware- did treat patient with Levaquin- repeating urine testing- will leave to surgeon's discretion) 09/09/23= SODIUM: 139 POTASSIUM: 4.0 CHLORIDE: 109 CO2: 26.5 BUN: 17.4 CREATININE: 0.83 GLUCOSE: 168 HGB A1C: 6.5 Electrocardiogram Date: 05/04/23 Findings: + NSR @ (71bpm ) Normal EKG per cardio Chest X-Ray Date: 05/04/23 Findings: + NAD
[~2023-10-14 09:28] MED LIST changes: +ROPIV 0.5% 246mg, Ketorolac 30mg, EPINEPHrine 0.5mg in NSS INFIL SCH; +ROPIVACAINE 0.5% HCL/PF 246 MG, Ketorolac (*for OR use only*) 30 MG, EPINEPHrine 30MG/3... INFIL SCH
[2023-10-14] MEDS ORDERED: ePHEDrine sulfate 50 MG/ML AMP IV PRN (10:27)
[2023-10-14] MEDS ORDERED: ONDANSETRON INJ 2 MG/ML 2 ML VIAL IV PRN ×2 (10:27→13:46)
[2023-10-14] MEDS ORDERED: fentaNYL citrate PF 100 MCG/2 ML VIAL IV PRN (10:27)
[2023-10-14] MEDS ORDERED: ATROPINE SULFATE 0.1 MG/ML 10ML SYR IV PRN (10:27)
[2023-10-14 10:42] LABS: Partial Thromboplastin Time 27 Seconds (21-31)
--- NOTE | 2023-10-14 11:23 | History & Physical Bridge Note ---
Date of Service October 14, 2023 History & Physical Bridge Note I have examined the patient, reviewed the History & Physical and in the interval since the performance of the History & Physical I have noted the following changes of clinical significance: no changes noted
[2023-10-14] MEDS ORDERED: ORTHO JOINT ANESTHETIC ONE (11:30)
[2023-10-14] MEDS ORDERED: MIDAZOLAM HCL 1 MG/ML 2ML VIAL ONE (12:42)
--- NOTE | 2023-10-14 13:40 | Operative Report ---
Post Operative Report Pre & Post Diagnosis Operation Date: 10/14/23 11:15 Pre-Op Diagnosis: Left Hip Osteoarthritis Post-Op Diagnosis: Left Hip Osteoarthritis I identified the patient and participated in the time-out.: Yes Procedure Operation Date: 10/14/23 11:15 Actual Procedures p Left Total Hip Arthroplasty, Uncemented(Left) - Rajan Gee MD Surgeon Rajan Gee MD [employer] Superintendent ERI Levi PA-C. No resident or fellow was available to assist. Estimated Blood Loss 100 Findings Consistent with Post-Op Diagnosis Specimens Left femoral head. Anesthesia Type Spinal MAC Complications none Disposition Disposition: Recovery Room Indications 73-year-old female was left hip arthritis refractory to conservative management. She is previously undergone a right total hip arthroplasty by myself with a good result. She now desires to have the same procedure performed on the contralateral left side. I had a long discussion with her about the risks and benefits of surgery, alternatives to surgery, and expected outcomes. After reviewing all these she elected to proceed with surgery. All questions were answered. Informed consent was signed. Description of Procedure Patient was identified in the preoperative holding area where the surgical site, left hip, was marked. A spinal anesthetic was placed, then the patient was brought back to the main operating room, placed in the operating table and moved into the lateral decubitus position. Axillary roll was placed. All bony prominences were padded. Perioperative antibiotics and tranexamic acid 1 gram IV were administered. The operative extremity was prepped and draped in the normal sterile fashion. Prior to incision a multidisciplinary timeout was called. All in the room were in agreement. We began by making an incision for a posterior approach to the hip. We dissected down through subcutaneous tissues to the level of the fascia. The fascia was incised in line with the incision. Charnley bow was placed. Fatty tissue was reflected posteriorly off the back of the greater trochanter to expose the piriformis and short external rotators of the hip. Quadratus femoris was taken off the femur subperiosteally. The piriformis and short external rotators were dissected off the posterior aspect of the hip. A box cut was made in the capsule. Inferior hip capsule was released off the femur. The femoral head was dislocated. The femoral neck cut was made at our preoperative template. The acetabulum was then exposed. The labrum was sharply excised. Contents of the cotyloid fossa were removed with electrocautery. We then began reaming at a size 8 mm less than our preoperative template. We reamed up by [address] the way up to a size 50 mm cup. This gave us good bleeding cancellus bone circumferentially. The acetabulum was then irrigated out and dried. The real [place] Gription cup was then impacted down into position with 45 degrees of lateral opening and 25 degrees of anteversion. A single cancellous bone screw was placed up into the ilium. Excellent fixation was obtained. A trial liner for a 32 mm femoral head was then placed. Next we turned our attention to the femur. The lateral neck was removed with a box osteotome. Intramedullary guide was used to establish the intramedullary canal. We then broached all the way up to a size 5. We began trialing with a standard offset neck and a +5 head. Hip was reduced. Leg lengths were symmetric. The hip was stable in extension and external rotation, and stable in the sleeper position. At 90 degrees of hip flexion the hip could be internally rotated 70 degrees before levering out of the cup. I was very happy with the stability exam. Therefore the hip was dislocated and the femoral trial was removed. The acetabulum was re-exposed, and the trial liner was removed. [place] hole eliminator screw was placed. An Altrx polyethylene liner for a 32 mm femoral head was then impacted into the shell. The locking mechanism was checked to ensure that it had engaged which it had. The femur was re-exposed. The femoral canal was irrigated and dried. The real size 5 standard offset Actis femoral stem was opened up. This was impacted down into position. The 32 mm ceramic femoral head with +5 mm offset was opened up and gently impacted down onto the trunnion. The hip was atraumatically reduced. Another 1 gram of IV tranexamic acid was started prior to closure. The wound was irrigated out with sterile Betadine solution. The periarticular injection cocktail was then placed. The short external rotators, piriformis, and posterior capsule were repaired through drill holes in the greater trochanter using #2 Vicryl. The fascia was run with a looped #1 PDS. The subcutaneous layer was closed with #1 PDS. The dermal layer was closed with 2-0 Vicryl. Zip line was used for the skin followed by a Silverlon dressing. A compressive dressing was then placed. The patient was then rolled supine. Leg lengths were rechecked and were symmetric. An abduction pillow was placed. Sedation was lifted and the patient was transferred to the recovery room in stable condition. Summary of implants: Depuy [place] Gription Acetabular Shell Sector Cup, 50 mm outer diameter [place] Cancellous bone screw, 6.5 x 40 mm [place] hole eliminator [place] Altrx Polyethylene Acetabular Liner, Neutral, with a 32 mm inner diameter DePuy Actis collared cementless Femoral stem, 12/14 taper, size 5 standard offset 32 mm ceramic femoral head with +5 offset Postoperative course: Patient will be admitted overnight from the recovery room. Patient will be weightbearing as tolerated with posterior hip precautions. Aspirin for DVT prophylaxis I attest to the content of the Intraoperative Record and any orders documented therein. Any exceptions are noted below.
--- NOTE | 2023-10-14 13:45 | Operative Report ---
Post Operative Report Pre & Post Diagnosis Operation Date: 10/14/23 11:15 Pre-Op Diagnosis: Left Hip Osteoarthritis Post-Op Diagnosis: Left Hip Osteoarthritis I identified the patient and participated in the time-out.: Yes Procedure Operation Date: 10/14/23 11:15 Actual Procedures p Left Total Hip Arthroplasty, Uncemented(Left) - Rajan Gee MD Surgeon Rajan Gee MD Auto Body Rep[employer]r [employer] ERI Levi PA-C. No resident or fellow was available to assist. Estimated Blood Loss 100 Findings Consistent with Post-Op Diagnosis Specimens femoral head and soft tissue Description of Procedure I was present during the entire case assisting with positioning, prepping, draping, wound retraction, wound closure and dressing application. No fellow present. Please see Dr. Gee procedure note for specifics of the case. I attest to the content of the Intraoperative Record and any orders documented therein. Any exceptions are noted below.
[2023-10-14] MEDS ORDERED: METOCLOPRAMIDE HCL INJ 5 MG/ML 2 ML VIAL IV PRN (13:46)
[2023-10-14] MEDS ORDERED: HYDROmorphone INJ 0.5 MG/0.5 ML SYR IV PRN (13:46)
[2023-10-14] MEDS ORDERED: ALUMINUM/MAGNESIUM SUSP 30 ML UDC PO PRN (13:46)
[2023-10-14] MEDS ORDERED: bisacodyL 10 MG SUPP PR PRN (13:46)
[2023-10-14] MEDS ORDERED: MAGNESIUM HYDROXIDE SUSP 30 ML UDC PO PRN (13:46)
[2023-10-14] MEDS ORDERED: NALOXONE HCL 0.4 MG/1 ML VIAL/CARP IV PRN (13:46)
[2023-10-14] MEDS ORDERED: PHARMACY GLYCEMIC MGMT CONSULT PRN (13:46)
[2023-10-14] MEDS ORDERED: diphenhydrAMINE 50 MG/ML VIAL IV PRN (13:46)
--- NOTE | 2023-10-14 14:11 | XRay Report ---
XR pelvis 1-2V routine CLINICAL HISTORY: In PACU - Post Surgical TECHNIQUE: A single frontal view of the pelvis was obtained. Comparison: Comparison is made to hip radiograph 06/29/2023 FINDINGS: Patient is status post total left hip arthroplasty with expected postsurgical changes including soft tissue swelling, and subcutaneous emphysema. No periarticular lucency or hardware fracture is seen. S table right hip arthroplasty. IMPRESSION: Expected postoperative appearance status post placement of total hip arthroplasty. ACT 112: Negative or not required by law. Electronically signed by: Osmel Abraham M.D. 10/14/2023 2:10 PM
--- NOTE | 2023-10-14 14:38 | Anesthesiology Progress Note ---
Date of Service October 14, 2023 Anesthesia Post Procedure Vital Signs Vital Signs: Temp Pulse Pulse Resp BP Pulse Ox O2 Del Method 10/14/23 14:30 54 L 12 120/70 100 Room Air 10/14/23 14:20 53 L 17 120/57 L 100 Room Air 10/14/23 14:10 65 17 107/61 99 Room Air 10/14/23 14:00 65 18 134/51 L 100 Room Air 10/14/23 13:50 65 17 125/53 L 100 Room Air 10/14/23 13:44 36.0 C L 72 16 126/59 L 100 Room Air 10/14/23 10:00 36.5 C 75 16 170/67 H 99 Room Air Pain Intensity Left Hip: Pain Intensity: 0 Transfer of Care Handoff Completed per policy Notes Mental Status: alert / awake / arousable Patient Amnestic to Procedure: Yes Nausea / Vomiting: adequately controlled Pain: adequately controlled Airway Patency, RR, SpO2: stable & adequate BP & HR: stable & adequate Hydration State: stable & adequate Anesthetic Complications: no major complications apparent
--- NOTE | 2023-10-14 14:39 | Pharmacy Report ---
Pharmacy Glycemic Short Note 2 - Date of Service October 14, 2023 - Glycemic Short BSG Results (Last 24 hours): 10/14/23 10/14/23 10:03 13:47 POC Glucose 141 H 104 H OUTPATIENT ANTIDIABETIC REGIMEN: * NovoLog 70/30 48 units with breakfast, 32 units with dinner * Glimepiride 2gm PO Daily ASSESSMENT: * 73 yo Female, s/p Left Total Hip Arthroplasty, type 2 DM on oral and mixed insulin at home. * Pre-mixed insulin is difficult to titrate since it is already in a fixed distribution of basal:prandial insulin. Continuing pre-mixed insulin for admission typically lead to hypoglycemia d/t changing PO status but rapid acting insulin is unable to be held. * Home regimen will be held for admission per pharmacy consult. Will utilize recommended regimen of SQ basal bolus insulin regimen with NPH + NovoLog (CF+CR), will use NPH for basal for easier transition back to home mixed insulin. PLAN FOR INPATIENT GLYCEMIC CONTROL: * Hold outpatient diabetes medications * Basal insulin * NPH 18 SQ BID with meals * Bolus insulin * NovoLog per scale ACHS or Q6hrs while NPO * Goal Range: Low 110 mg/dL - High 140 mg/dL * Correction Factor: 20 mg/dL/unit * Nutritional / Prandial insulin per carb ratio of 1 unit per 7 grams CHO consumed
[2023-10-14] MEDS ORDERED: CARBOHYDRATES FOR HYPOGLYCEMIA PO PRN (14:45)
[2023-10-14] MEDS ORDERED: GLUCAGON FOR INJ 1 MG VIAL IM PRN (14:45)
[2023-10-14] MEDS ORDERED: GLUCOSE 10 TAB/TUBE PO PRN (14:45)
[2023-10-14] MEDS ORDERED: GLUCOSE 40% GEL 15 GM TUBE PO PRN (14:45)
[2023-10-14] MEDS ORDERED: DEXTROSE 50% 50 ML SYRINGE IV PRN (14:45)
[2023-10-14] MEDS: SODIUM CHLORIDE 0.9% 1,000 ML IV SCH (16:28)
[2023-10-14] MEDS: ACETAMINOPHEN 500 MG TAB PO SCH ×2 (16:40→22:51)
[2023-10-14] MEDS: Scopolamine CHECK PATCH PLACEMENT SCH (16:40)
[2023-10-14] MEDS: KETOROLAC TROMETHAMINE 15 MG/ML VIAL IV SCH ×2 (16:40→22:51)
[2023-10-14] MEDS: INSULIN HUMAN NPH SC SCH (17:23)
[2023-10-14] MEDS: INSULIN ASPART PER UNIT CHARGE SC SCH ×3 (17:24→22:55)
[2023-10-14] MEDS: DOCUSATE SODIUM 100 MG CAP PO SCH (20:19)
[2023-10-14] MEDS: ceFAZolin 2000MG 2,000 MG/15 ML SYR IV SCH (20:20)
[2023-10-14] MEDS: ASPIRIN 81 MG ECTAB PO SCH (20:20)
[2023-10-14] MEDS ORDERED: SENNA 8.6 MG TAB PO SCH (21:00)
--- OUTSIDE RECORDS SUMMARY | 2023-10-14 22:00 | External Medical Summary | Continuity of Care Document ---
Author Name Unknown Organization [facility] [id number] Address [address] [place] [id number] Care Team Providers Care Key Carrier Name Role Phone Karolina White Primary Care Physician [phone] [id number] Date(s): 09/29/23 - 09/29/23 [facility] [place] [id number] [address] [place] [id number] Encounter Diagnosis Preop examination(Discharge Diagnosis) - 09/29/23 Arthritis of left hip(Discharge Diagnosis) - 09/29/23 Discharge Disposition: Home or Self Care Attending Physician: ANJU Levi Dennis Referring Physician: MD Gerard, Rajan Ridley Allergies, Adverse Reactions, Alerts Substance Reaction Severity Status ciprofloxacin Unknown Active Medications BD PEN NEEDLE/JOVANNY [id number] MIS Start: 02/25/23 9:45:00 EDT, BD PEN NEEDLE/JOVANNY [id number] MIS Start Date: 02/25/23 Status: Ordered fenofibrate 145 mg oral tablet Start: 02/25/23 9:45:00 EDT Start Date: 02/25/23 Status: Ordered FREESTYLE LITE TIKI Start: 02/25/23 9:45:00 EDT, FREESTYLE LITE TIKI Start Date: 02/25/23 Status: Ordered glimepiride 2 mg oral tablet TAKE 1 TABLET BY MOUTH ONCE DAILY IN THE MORNING BEFORE BREAKFAST Start Date: 04/09/23 Status: Ordered Levaquin 500 mg oral tablet Start: 10/01/23 10:33:00 EST, 1 tab, PO, q24h, Disp# 5 tab, preop UTI, Pharmacy: [id number] Start Date: 10/01/23 Stop Date: 10/06/23 Status: Ordered multivitamin Start: 03/27/22 14:06:00 EDT, 1 tab, PO, Daily Start Date: 03/27/22 Status: Ordered NovoLOG Mix 70/30 FlexPen subcutaneous suspension Start: 02/25/23 9:45:00 EDT, 48 units in the morning, 32 units in the evening Start Date: 02/25/23 Status: Ordered Potassium Chloride (Scc-Vryg-Vtm M20) 20 mEq oral tablet, extended release 1 tab, TAKE 1 BY MOUTH ONCE DAILY Start Date: 03/27/22 Status: Ordered unlisted medication Start: 11/30/22 12:30:00 EDT, 50 each, USE 1 STRIP TO CHECK GLUCOSE ONCE DAILY Start Date: 11/30/22 Status: Ordered Vitamin B12 Start: 03/27/22 14:06:00 EDT Start Date: 03/27/22 Status: Ordered Vitamin D3 Start: 03/27/22 14:06:00 EDT Start Date: 03/27/22 Status: Ordered Mental Status 09/29/23 Barriers to Learning one year None evide nt Mandatory Health Literacy Documentation Yes Health Literacy Communication Barriers N ever Primary Language Panamanian Problem List Condition Confirmation Course Effective Dates Status H ealth Status Informant Arthritis of left hip Confirmed Active Avascular necrosis of hip Confirmed Active Diabetes Confirmed Active Bilateral hip pain Confirmed Active Left lumbar radiculopathy Confirmed Active Hip osteoarthritis Confirmed Active Diagnosis Diagnosis Type Effective Dates Health Status Clinical Service Informant Arthritis of left hip Discharge Diagnosis 09/29/23 Preop examination Discharge Diagnosis 09/29/23 Vital Signs Most recent to oldest [Reference Range]: 1 Height 166.0 cm (09/29/23 1:22 PM) Patient Weight 77.4 kg (09/29/23 1:22 PM) Body Mass Index 28.09 kg/m2 (09/29/23 1:22 PM) Temperature [36.5-37.9 DegC] 36.0 DegC *LOW* (09/29/23 1:22 PM) Respiratory Rate 20 br/min (09/29/23 1:22 PM) Blood Pressure 130/80mmHg (09/29/23 1:22 PM) Cuff Pulse Pressure 50 mmHg (09/29/23 1:22 PM) Social History Social History Type Response Smoking Status Never smoked cigaret tiki Sex Pre-OP H & P * ANJU Levi, Robert: PERFORM Event Display: Pre-OP H & P Authored Date: [id number] PRE-OPERATIVE HISTORY AND PHYSICAL Name: MICHELLE LIMA Patient Number: [id number] : 1950 Date of Service: 09/29/2023 PRE-OP Diagnosis: Left hip osteoarthritis Planned Procedure: Left total hip arthroplasty Chief Complaint: Left hip pain History of Present Illness (including history relevant to procedure): This 73-year-old female presents to the clinic today for preoperative history and physical. Patient has a longstanding history ofbilateral hip pain. She had her right hip replaced by Dr. Gee on May 20 and has had great results. She noticed that her left hip began hurting her much more after having her right hip fixed. She is finished with physical therapy for her right hip and is electing to proceed with left total hip arthroplasty due to worsening symptoms that are affecting her gait. Review Of Systems: A 12 point review of systems is performed and is unremarkable except for those things stated in the HPI and past medical history. Past Medical History: Problems: Arthritis of left hip Avascular necrosis of hip Hip osteoarthritis Bilateral hip pain Left lumbar radiculopathy Diabetes Procedure History Procedure Procedure Date Comments Right hip replaced Partial hysterectomy Breast biopsy Allergies and Sensitivities: ciprofloxacin(Unknown) Current Home Meds: (Last Updated 10/01 10:34) cholecalciferol (Vitamin D3) cyanocobalamin (Vitamin B12) fenofibrate (fenofibrate 145 mg oral tablet) glimepiride (glimepiride 2 mg oral tablet) TAKE 1 TABLET BY MOUTH ONCE DAILY IN THE MORNING BEFORE BREAKFAST insulin aspart-insulin aspart protamine (NovoLOG Mix 70/30 FlexPen subcutaneous suspension) 48 units in the morning, 32 units in the evening levoFLOXacin (Levaquin 500 mg oral tablet) 500 mg PO q24h preop UTI multivitamin 1 tab PO Daily potassium chloride (Potassium Chloride (Zxb-Tftc-Usr M20) 20 mEq oral tablet, extended release) 20 mEq TAKE 1 BY MOUTH ONCE DAILY unlisted medication 50 each, USE 1 STRIP TO CHECK GLUCOSE ONCE DAILY Responsible Provider: KAROLINA WHITE 11/30 12:30 unlisted medication (FREESTYLE LITE TIKI) unlisted medication (BD PEN NEEDLE/JOVANNY [id number] MIS) Vitals: Last Updated 09/29/23 13:22 Weights: Last Updated 09/29/23 13:22 Date Temp Pulse BP RR SpO2 FIO2 Date Wt(kg) Wt(lb) 09/29 13: 36.0 130/80 20 98 09/29 13:22 77.4 170 09/29 13: 77.4 170 24 Hr Tmax: No Data Available Initial Wt: 09/29 77.4 kg 170 lb Physical Exam: (relevant to the procedure, including heart and lung evaluation) General: Alert and oriented x 3 with proper grooming and hygiene Eyes: Pupils are equal and reactive to light with accommodation. Extraocular movements are intact Throat: Posterior oropharynx clear with absence of edema, erythema or exudate. Dentition is appropriate Cardiac: Regular rate and rhythm with no murmurs or gallops appreciated Lungs: Clear to auscultation throughout with no wheezing, rales or rhonchi Abdomen: Mildly obese, nondistended, nontender with NABS Extremities: Left hip: Patient experiences tenderness to palpation over the inguinal crease. Flexion is limited to about 95 degrees, external rotation to 40 degrees and internal rotation to 5 degrees. Straight leg raise test and Stinchfield test causes referred pain to the groin area. Logroll test does not cause any pain. Patient is neurovascularly intact in the left lower extremity. Neuro: Cranial nerves II through XII are intact with no motor or sensory deficit Skin: Normal appearance with no open skin areas or discharge Studies (relevant to the procedure): Results reviewed x-rays done today personally interpreted by me include an AP pelvis, and false profile lateral of the right hip. Hardware is in good position with no evidence of complication. She does have severe left hip arthritis with joint space narrowing, subchondral sclerosis and cyst formation Plan: Patient is scheduled to undergo this procedure at the [facility] with a 23-hour observation admission with Dr. Gee on October. Risks and complications of the procedure such as: Infection, bleeding, pain, scarring, nerve blood vessel damage, weakness, wound problems, stiffness, incomplete relief of symptoms, hardware failure, hardware loosening, wear, fracture, tendon or ligament injury, dislocation, leg length inequality, blood clots, Embolism, heart attack, stroke and were explained to the patient at her visit today. Informed consent toperform the procedure was obtained. Patient also understands risks of proceeding with surgical inter vention during the COVID-19 pandemic. Currently she is asymptomatic and has not been in contact with anyone positive for the virus recently. Patient does not need to meet with anesthesia due to her recent right total hip arthroplasty. Her CBC with differential, complete metabolic panel, EKG and hemoglobin A1c are all up-to-date. We will need to obtain an updated PT/INR, urinalysis, urine culture and sensitivity as well as a nasal culture for MRSA. Patient will also need preoperative medical clearance from their primary care provider Dr. White. She saw him on September 21 and was cleared forsurgical intervention. Patient states that she plans on doing in-home physical therapy for the first 1 to 2 weeks postoperatively. Patient states that she will most likely elect to do outpatient physical therapy at [facility] [place] which is closer to her home. Patient has a walker, raised toilet seat, shower chair and a hip kit from her previous hip surgery. During today's visit we reviewed the total hip packet as well as precautions. We discussed discharge planning from the hospital. I advised the patient that upon discharge from hospital we will prescribe a narcotic pain medication and anti-inflammatory. Patient will also be on an 81 mg aspirin twice daily for blood clot prevention. Patient will be scheduled for 2-week postoperative follow-up with myself on 2023. At that visit we will Provide the patient with an order for outpatient physical therapy and rehab protocol. This chart was completed utilizing [employer] voice recognition software. Grammatical errors,random word insertions, pronoun errors, and in complete sentences are an occasional consequence of the system. Any questions or concerns about the content, text, or information contained within the body of this dictation should be addressed directly to the physician for clarification. Electronic Signature on File Electronically Reviewed/Signed by: Robert Levi PA-C Author Signature Dt/Tm:10/01/2023 12:19 PM Division of Sports Medicine Electronically Reviewed/Signed by: MD Tiffany Galloigner Signature Dt/Tm: 10/01/2023 12:47PM Division of Sports Medicine DC Patient Care team information Care Team Personnel Name: MD White Anthony J Position: Referring Member Role: Primary Care Provider Address: Address: [address] [place] [id number] [place] Care Team Related Persons Name: VASQUEZ LIMA Name: ADAN AMBROSIO
[2023-10-15] MEDS: Scopolamine CHECK PATCH PLACEMENT SCH ×2 (01:52→09:11)
[2023-10-15] MEDS: oxyCODONE HCL IR 5 MG TAB (IMMEDIATE RELEASE) PO PRN ×2 (03:03→10:20)
[2023-10-15] MEDS: KETOROLAC TROMETHAMINE 15 MG/ML VIAL IV SCH ×2 (03:04→09:11)
[2023-10-15] MEDS: SODIUM CHLORIDE 0.9% 1,000 ML IV SCH (03:04)
[2023-10-15] MEDS: ceFAZolin 2000MG 2,000 MG/15 ML SYR IV SCH (03:07)
[2023-10-15] MEDS: ACETAMINOPHEN 500 MG TAB PO SCH (06:29)
[2023-10-15 06:30] LABS: Basophils # (auto) 0.01 K/uL (0.00-0.20); Basophils % (auto) 0.1 %; Eosinophils # (auto) 0.18 K/uL (0.00-0.50); Eosinophils % (auto) 2.5 %; Hematocrit (blood only) 32.8 % (37.0-47.0); Hemoglobin 10.7 g/dl (12.0-16.0); Immature Granulocytes # (auto) 0.02 K/uL (0.01-0.20); Immature Granulocytes % (auto) 0.3 %; Lymphocytes # (auto) 1.12 K/uL (1.20-3.40); Lymphocytes % (auto) 15.7 %; Mean Corpuscular Hemoglobin 28.5 pg (25.0-34.0); Mean Corpuscular Hgb Conc 32.6 g/dL (32.0-36.0); Mean Corpuscular Volume 87.5 fL (80.0-100.0); Mean Platelet Volume 9.2 fL (9.4-12.4); Monocytes # (auto) 0.65 K/uL (0.11-0.59); Monocytes % (auto) 9.1 %; Neutrophils # (auto) 5.16 K/uL (1.40-6.50); Neutrophils % (auto) 72.3 %; Platelet Count 202 K/uL (130-400); RDW Coefficient of Variation 13.5 % (11.5-14.5); RDW Standard Deviation 42.2 fL (36.4-46.3); Red Blood Count 3.75 M/uL (4.20-5.40); White Blood Count 7.14 K/ul (4.8-10.8)
[2023-10-15 06:51] LABS: BUN Creatinine Ratio 20.8 (10-20); Calcium 8.6 mg/dl (8.6-10.3); Creatinine Clr Calc Pharmacy 68.2 ml/min; Est GFR (African American) 89.4 ml/min; Est GFR (Non-African American) 77.1 ml/min; Potassium 3.9 mmol/L (3.5-5.1)
[2023-10-15] MEDS ORDERED: CEROVITE ADV FORMULA TAB PO SCH (09:00)
[2023-10-15] MEDS ORDERED: CHOLECALCIFEROL 25 MCG (1000 UNITS) TAB PO SCH (09:00)
[2023-10-15] MEDS ORDERED: GLIMEPIRIDE 2 MG TAB PO SCH (09:00)
[2023-10-15] MEDS ORDERED: FENOFIBRATE NANOCRYSTALLIZED 145 MG TABLET PO SCH (09:00)
[2023-10-15] MEDS ORDERED: MULTIVITAMIN TAB PO SCH (09:00)
[2023-10-15] MEDS ORDERED: POTASSIUM CHLORIDE CRTAB 20 MEQ TABCR PO SCH (09:00)
[2023-10-15] MEDS ORDERED: CYANOCOBALAMIN (B-12) 500 MCG TABLET PO SCH (09:00)
[2023-10-15] MEDS: INSULIN HUMAN NPH SC SCH (09:09)
[2023-10-15] MEDS: ASPIRIN 81 MG ECTAB PO SCH (09:10)
[2023-10-15] MEDS: DOCUSATE SODIUM 100 MG CAP PO SCH (09:10)
[2023-10-15] MEDS: INSULIN ASPART PER UNIT CHARGE SC SCH (09:15)
--- NOTE | 2023-10-15 13:18 | Orthopedic Progress Note ---
Date of Service October 15, 2023 Assessment & Plan (1) S/P total left hip arthroplasty: Plan: Weightbearing as tolerated with walker assistance Total hip precautions reviewed Ice with easy wrap Keep Silverlon dressing in place until 2-week follow-up Pain controlled p.o. medication DVT prophylaxis with aspirin and ALEX stockings Abduction pillow use x 6 weeks PT/OT Plan is to discharge home today with in-home physical therapy for the first 2 weeks. Follow-up at [facility] orthopedics as previously scheduled With questions contact our clinic at [phone] Admission and Anticipated Discharge Date Admission Date: October 14, 2023 Subjective This 73-year-old female is day 1 status post left total hip arthroplasty. Patient states she is doing very well. She really has no pain at present. She states she has completed physical therapy and Occupational Therapy and is ready to be discharged home as soon as possible. Currently she denies chest pain, shortness of breath, fever, chills, sweats, numbness or tingling in her left lower extremity. She also denies nausea, vomiting, diarrhea or difficulty voiding. Review of Systems Review of Systems: All systems reviewed & are unremarkable except as noted in Subjective Physical Exam Physical Exam: Left hip: Outer dressing was removed. Silverlon is clean dry and intact and left in place. Patient is able to easily perform an active straight leg raise test. She is able to actively dorsi and plantarflex her foot without issue. Patient tolerates light passive hip flexion near 90 degrees and only experiences some slight tension with light passive internal and external hip rotation. Logroll testing causes no pain. Patient's quad strength is 4 out of 5. She is neurovascularly intact in the left lower extremity. Results & Data Vital Signs (Past 12 Hours) Vital Signs Temp Pulse Resp BP Pulse Ox O2 Del Method 10/15/23 07:22 36.5 C 56 L 16 142/59 H 100 Room Air 10/15/23 04:59 36.8 C 68 14 108/65 96 Room Air Diagnostic Findings Laboratory Results WBC 7.14 K/ul (4.8-10.8) 10/15/23 05:46 RBC 3.75 M/uL (4.20-5.40) L 10/15/23 05:46 Hgb 10.7 g/dl (12.0-16.0) L 10/15/23 05:46 Hct 32.8 % (37.0-47.0) L 10/15/23 05:46 MCV 87.5 fL (80.0-100.0) 10/15/23 05:46 MCH 28.5 pg (25.0-34.0) 10/15/23 05:46 MCHC 32.6 g/dL (32.0-36.0) 10/15/23 05:46 RDW Std Deviation 42.2 fL (36.4-46.3) 10/15/23 05:46 RDW Coeff of Amanda 13.5 % (11.5-14.5) 10/15/23 05:46 Plt Count 202 K/uL (130-400) 10/15/23 05:46 MPV 9.2 fL (9.4-12.4) L 10/15/23 05:46 Immature Gran % (Auto) 0.3 % 10/15/23 05:46 Neut % (Auto) 72.3 % 10/15/23 05:46 Lymph % (Auto) 15.7 % 10/15/23 05:46 [place] % (Auto) 9.1 % 10/15/23 05:46 Eos % (Auto) 2.5 % 10/15/23 05:46 Baso % (Auto) 0.1 % 10/15/23 05:46 Neut # (Auto) 5.16 K/uL (1.40-6.50) 10/15/23 05:46 Lymph # (Auto) 1.12 K/uL (1.20-3.40) L 10/15/23 05:46 [place] # (Auto) 0.65 K/uL (0.11-0.59) H 10/15/23 05:46 Eos # (Auto) 0.18 K/uL (0.00-0.50) 10/15/23 05:46 Baso # (Auto) 0.01 K/uL (0.00-0.20) 10/15/23 05:46 Immature Gran # (Auto) 0.02 K/uL (0.01-0.20) 10/15/23 05:46 APTT 27 Seconds (21-31) 10/14/23 10:02 PTT Ratio 1.0 10/14/23 10:02 Sodium 139 mmol/L (136-145) 10/15/23 05:46 Potassium 3.9 mmol/L (3.5-5.1) 10/15/23 05:46 Chloride 109 mmol/L (98-107) H 10/15/23 05:46 Carbon Dioxide 24 mmol/L (21-32) 10/15/23 05:46 Anion Gap 6 (3-11) 10/15/23 05:46 BUN 16 mg/dl (6-23) 10/15/23 05:46 Creatinine 0.77 mg/dl (0.6-1.2) 10/15/23 05:46 Est Cr Clr Drug Dosing 68.2 ml/min 10/15/23 05:46 Est GFR ( Amer) 89.4 ml/min 10/15/23 05:46 Est GFR (Non-Af Amer) 77.1 ml/min 10/15/23 05:46 BUN/Creatinine Ratio 20.8 (10-20) H 10/15/23 05:46 Glucose 146 mg/dl (70-99(Fasting)) H 10/15/23 05:46 POC Glucose 170 mg/dl (70-99) H 10/15/23 07:48 Calcium 8.6 mg/dl (8.6-10.3) 10/15/23 05:46 Blood Type A Positive 10/14/23 10:02 Antibody Screen NEGATIVE 10/14/23 10:02 Impressions Pelvis X-Ray 10/14/23 13:46 XR pelvis 1-2V routine CLINICAL HISTORY: In PACU - Post Surgical TECHNIQUE: A single frontal view of the pelvis was obtained. Comparison: Comparison is made to hip radiograph 06/29/2023 FINDINGS: Patient is status post total left hip arthroplasty with expected postsurgical changes including soft tissue swelling, and subcutaneous emphysema. No periarticular lucency or hardware fracture is seen. Stable right hip arthroplasty. IMPRESSION: Expected postoperative appearance status post placement of total hip arthroplasty. ACT 112: Negative or not required by law. Electronically signed by: Osmel Abraham M.D. 10/14/2023 2:10 PM
--- NOTE | 2023-10-15 13:20 | Discharge Summary ---
Date of Service October 15, 2023 Admission HPI Per Admitting Provider History of Present Illness (including history relevant to procedure): This 73-year-old female presents to the clinic today for preoperative history and physical. Patient has a longstanding history of bilateral hip pain. She had her right hip replaced by Dr. Gee on May 20 and has had great results. She noticed that her left hip began hurting her much more after having her right hip fixed. She is finished with physical therapy for her right hip and is electing to proceed with left total hip arthroplasty due to worsening symptoms that are affecting her gait. Review Of Systems: A 12 point review of systems is performed and is unremarkable except for those things stated in the HPI and past medical history. Past Medical History: Problems: Arthritis of left hip Avascular necrosis of hip Hip osteoarthritis Bilateral hip pain Left lumbar radiculopathy Diabetes Procedure History Procedure Procedure Date Comments Right hip replaced Partial hysterectomy Breast biopsy Allergies and Sensitivities: ciprofloxacin(Unknown) Current Home Meds: (Last Updated 10/01 10:34) cholecalciferol (Vitamin D3) cyanocobalamin (Vitamin B12) fenofibrate (fenofibrate 145 mg oral tablet) glimepiride (glimepiride 2 mg oral tablet) TAKE 1 TABLET BY MOUTH ONCE DAILY IN THE MORNING BEFORE BREAKFAST insulin aspart-insulin aspart protamine (NovoLOG Mix 70/30 FlexPen subcutaneous suspension) 48 units in the morning, 32 units in the evening levoFLOXacin (Levaquin 500 mg oral tablet) 500 mg PO q24h preop UTI multivitamin 1 tab PO Daily potassium chloride (Potassium Chloride (Lwr-Tozy-Vkc M20) 20 mEq oral tablet, extended release) 20 mEq TAKE 1 BY MOUTH ONCE DAILY unlisted medication 50 each, USE 1 STRIP TO CHECK GLUCOSE ONCE DAILY Responsible Provider: KAROLINA WHITE 11/30 12:30 unlisted medication (FREESTYLE LITE TIKI) unlisted medication (BD PEN NEEDLE/JOVANNY [id number] MIS) Initial Wt: 09/29 77.4 kg 170 lb Admission Exam Per Admitting Provider Physical Exam: (relevant to the procedure, including heart and lung evaluation) General: Alert and oriented x 3 with proper grooming and hygiene Eyes: Pupils are equal and reactive to light with accommodation. Extraocular movements are intact Throat: Posterior oropharynx clear with absence of edema, erythema or exudate. Dentition is appropriate Cardiac: Regular rate and rhythm with no murmurs or gallops appreciated Lungs: Clear to auscultation throughout with no wheezing, rales or rhonchi Abdomen: Mildly obese, nondistended, nontender with NABS Extremities: Left hip: Patient experiences tenderness to palpation over the inguinal crease. Flexion is limited to about 95 degrees, external rotation to 4 0 degrees and internal rotation to 5 degrees. Straight leg raise test and Stinchfield test causes referred pain to the groin area. Logroll test does not cause any pain. Patient is neurovascularly intact in the left lower extremity. Neuro: Cranial nerves II through XII are intact with no motor or sensory deficit Skin: Normal appearance with no open skin areas or discharge Principal Diagnosis Left hip osteoarthritis Discharge Exam Left hip: Outer dressing was removed. Silverlon is clean dry and intact and left in place. Patient is able to easily perform an active straight leg raise test. She is able to actively dorsi and plantarflex her foot without issue. Patient tolerates light passive hip flexion near 90 degrees and only experiences some slight tension with light passive internal and external hip rotation. Logroll testing causes no pain. Patient's quad strength is 4 out of 5. She is neurovascularly intact in the left lower extremity. Discharge Data Allergies Allergy/AdvReac Type Severity Reaction Status Date / Time ciprofloxacin [From Cipro] AdvReac headache Verified 10/14/23 09:55 Procedures Performed Operation Date: 10/14/23 11:15 Actual Procedures p Left Total Hip Arthroplasty, Uncemented(Left) - Rajan Gee MD Hospital Course (1) S/P total left hip arthroplasty: Patient had an uneventful overnight stay following left total hip arthroplasty. She is very pleased with the results of the surgery. She is anticipating being discharged home soon as possible and is set to begin in-home physical therapy either later this week and early next week. Weightbearing as tolerated with walker assistance Total hip precautions reviewed Ice with easy wrap Keep Silverlon dressing in place until 2-week follow-up Pain controlled p.o. medication DVT prophylaxis with aspirin and ALEX stockings Abduction pillow use x 6 weeks PT/OT Plan is to discharge home today with in-home physical therapy for the first 2 weeks. Follow-up at [facility] orthopedics as previously scheduled With questions contact our clinic at [phone] Total Time Total Time Spent Total Time Spent (In Minutes): 20 minutes Discharge Plan Discharge Items Patient Disposition: Home - Home Health Services Reason For Visit: Left Hip Osteoarthritis Discharge Diagnosis: Left hip osteoarthritis Activity: As commented below Lifting: None Bathing: Keep incision dry Bathing Comment: May shower tomorrow Sexual Activity: Wait until after follow-up appointment Exercise/Sports: Wait until after follow-up appointment Driving/Machine Use: No driving until cleared by senior loss control specialist Weightbearing Comment: as tolerated with walker assistance Non-emergency contact: Surgeon Call non-emergency contact if: you have any medication questions, your pain is not controlled, your temperature is above 101.5, your wound has increased drainage and your wound pain has increased Follow-up/Referrals: Karolina White MD [Primary Care Provider] - Diet: Carb Count or DM1 Addtl Attending Provider Instructions: Post-operative Instructions Dear Patient and Family/Friends, Before you are discharged from the hospital, it is important to know what to expect when you get home after surgery. To that end, we have created this sheet of discharge instructions which covers many commonly asked questions. Make sure you go through this sheet in its entirety with your nurse before you are discharged. Please note that we will go over the specifics of your surgery and recovery when you return for your first post-operative visit. Sincerely, Dr. Gee Medications 1. Oxycodone 5 mg: Take 1-2 tabs every 4-6 hours as needed for postoperative pain control. This prescription was sent to your pharmacy. 2. Diclofenac sodium 75 mg: Take 1 tab twice daily for the first 30 days postoperatively. This will be sent to your pharmacy with 1 additional refill. 3. Aspirin 81 mg: Take 1 tab twice daily for the first 30 days postoperatively for blood clot prevention. Please purchase this medication. 4. Extra strength Tylenol 500 mg: Take 2 tabs every 6-8 hours as needed for additional pain relief. Please purchase this medication also. Pain Expect to be in a fair amount of pain after surgery. Remember, our goal is not to eliminate your pain, but to make it tolerable. It is a good idea to stay ahead of your pain by taking the medications you were prescribed once you get home. Typically, the pain starts improving 3-7 days after surgery. You should start weaning off the narcotic pain medication (oxycodone, hydrocodone, hydromorphone, morphine) as soon as your pain improves. Please call our office if your pain is not adequately controlled. Ice Ice your operative site at least 5 times a day for 15-30 minutes at a time. Make sure you have a thin cloth between the ice or cooling unit and your skin to prevent souza bite. This is especially important if you received a nerve block. Continue icing your operative site for the first 5-7 days after surgery, then as needed. Diet/Nausea/Vomiting Start by drinking clear liquids and eating crackers. If you can tolerate this, then you may resume your normal diet. If you feel nauseated or vomit, take Zofran/ondansetron (if prescribed). Please call our office if you have intractable nausea or vomiting, or, if after hours, you may go to the Emergency Room for help. Constipation Constipation is a common side effect of narcotic pain medication. If you have not had a bowel movement within 2 days after surgery, we recommend purchasing an over the counter laxative such as Milk of Magnesia, Dulcolax, or Miralax from a local pharmacy, and taking it as instructed. Call our clinic if any questions. Nerve block The anesthesia team sometimes places a nerve block to help with post-operative pain control. This results in significant numbness and inability to move the extremity. The nerve block usually wears off in 8-12 hours, but sometimes can last up to 24 hours. Please call our office if you are still unable to move your extremity after 24 hours, unless you received a pain pump to take home. Nerve blocks typically wear off quickly, so start taking pain medication as soon as you start feeling soreness near your surgical site. Weight bearing and Range of Motion. Do not bear any weight through your operative extremity immediately after surgery. If you had upper extremity surgery, do not lift anything with that arm. If you are in a knee brace, keep it locked in place until your follow-up. We will discuss your weight bearing, range of motion, and lifting restrictions in detail at your first post-operative appointment. Continuous Passive Motion (CPM) Machine If you were prescribed a CPM machine, it will start after your first post- operative appointment, at which time we will give you instructions on the range of motion settings and duration of treatment Physical therapy You will be given a prescription for physical therapy or occupational therapy at your first post-operative appointment. Typically, patients start therapy within 1 week of surgery Wound care and showering We will inspect your wound at your first post-operative visit, and may do a dr noguera change at that time. Most patients will be in a water-proof dressing that is removed 14 days after surgery. It is normal to see some dried blood on the dressing. Do not remove your dressing, paper strips or sutures yourself unless you are given permission. Showering is allowed the day after surgery. Do not scrub or remove any dressings. The wound should not be submerged underwater (i.e. in a bathtub or pool) until 4 weeks after surgery ALEX stockings If you were given white stockings, these are to be worn at all times except to shower (on both legs) for the first 2 weeks after surgery. Driving You may not drive while taking narcotic pain medication or while in a cast, splint, sling or brace. You, the patient, need to make the final determination about when you are safe to drive, however, the earliest you may consider driving after surgery is below: Hand/Wrist/Elbow Surgery: 3 days Shoulder Surgery: 2 weeks Hip,/Knee/Ankle Surgery: 4 weeks Fracture repair: 6 weeks Return to Work Your return to work depends on what surgery was done and what type of work you do. Please bring any paperwork your employer needs completed to your first post-operative visit. Also, bring a description of your job duties, as this helps us to understand what risks you may face at work. Travel Avoid long distance travel (greater than 1 hour) in airplanes and cars for the first 6 weeks after surgery. If you must travel, you need to have a Doppler ultrasound done before you travel to rule out a blood clot in your legs. Follow-up You should have a follow-up appointment already scheduled 1-2 days after surgery. If not, please contact our office to make this appointment before you leave the hospital. When to call the office It is normal to have swelling and bruising in the limb that was operated on. This will improve with time. It is also normal to have fevers for the first 2 days after surgery. Reasons you should call your doctor include: Uncontrolled pain; Nausea, vomiting, or constipation that does not improve with medication; Fevers over 101.5, chills, sweats; Drainage or bleeding from the wound; Foul odor; Spreading areas of redness; Any other concerns Pending Studies at Discharge: No Stand-Alone Forms: [facility] Medications and DC Order Prescriptions: New acetaminophen [Tylenol Extra Strength] 500 mg Tablet 1,000 mg PO Q8 30 Days Qty: 180 0RF aspirin 81 mg Tablet,Delayed Release (Dr/Ec) 81 mg PO BID 30 Days Qty: 60 0RF oxycodone 5 mg Tablet 5 - 10 mg PO Q4H MDD Ongoing treatment PRN (Reason: Postoperative pain control) Qty: 28 0RF diclofenac sodium 75 mg tablet,delayed release (DR/EC) 75 mg PO BID 30 Days Qty: 60 1RF Continued glimepiride 2 mg Tablet 2 mg PO QAM Rx Instructions: administer with breakfast cyanocobalamin (vitamin B-12) [Vitamin B-12] 500 mcg Tablet 1,000 mcg PO QAM geriatric multivitamin-min Tablet 1 tab PO QAM fenofibrate nanocrystallized 145 mg Tablet 145 mg PO QAM cholecalciferol (vitamin D3) [Vitamin D3] 50 mcg (2,000 unit) Tablet 50 mcg PO QAM potassium chloride 20 mEq Tablet Extended Release 20 meq PO QAM insulin asp prt-insulin aspart [Novolog Mix 70-30FlexPen U-100] 100 unit/mL (70-30) Insulin Pen 48 unit SUBCUT QAM insulin asp prt-insulin aspart [Novolog Mix 70-30FlexPen U-100] 100 unit/mL (70-30) Insulin Pen 32 unit SUBCUT QPM cranberry extract 250 mg Tablet PO Krames/Other Patient Handouts: How Your Hip Works, Hip Surg Get In Out of Cars Admission Data Admit Date/Time: 10/14/23 13:46 Attending Provider: Rajan Gee Admit Provider: Rajan Gee Primary Care Provider: Karolina White Other Interventions: Discharge Summary Assessment (RN) Last Done: 10/15/23 10:24
[2023-10-15] MEDS ORDERED: CeleBREX 200 MG CAP PO SCH (21:00)
== END 2023-10-15 11:11 | disposition home health service (06) ==
LOC: ASU 09:28 → PACUINP 09:28 → 3E 15:57